=== PATIENT | female | born 1945 | race Caucasian/White ===

== ENCOUNTER 2017-02-07 06:00 | Inpatient (IN) | payer MEDICARE, OTHER ==
[~2017-02-07] VITALS: Ht 152.4 cm; Wt 68.0 kg
[~2017-02-07 06:00] MED LIST: ACET-868 PO; ALBU2.5V13 IH; ALLA266C2 TP; ASPI81TA2 PO; ATOR40TA PO; BLOO-697 IN; DEXL60CA3 PO; DEXT50DI8 IV; FLUT1DIS3 IH; IBUP-1955 PO; INSU100I19 SQ; INSU100V3 SQ; LEVO750T46 PO; MAG30ORA PO; MAGN400O6 PO; METF500T4 PO; OXYC-128 PO
--- NOTE | 2017-02-07 06:04 | NUR ---
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 PER EMS PLACED IV ON LEFT HAND 20G. AND GAVE PT ASA 325 PO AND 1 SPRAY NITRO WITHOUT RELIEF. PT AOX4 RR EVEN AND UNLABORED. NO SOB NOTED. NAD NOTED. NO NVD AT THIS TIME. PT GOWNED AND PLACED ON MONITOR WAITING FOR MD PETERSEN.
--- NOTE | 2017-02-07 06:06 | NUR ---
DR. ROGERS AT BEDSIDE FOR EVAL.
[2017-02-07] MEDS ORDERED: IV NS 0.9% 1,000 ML ONE (06:12)
[2017-02-07] MEDS ORDERED: ONDANSETRON HCL/PF 4 MG/2 ML VIAL ONE (06:12)
[2017-02-07] MEDS ORDERED: MORPHINE SULFATE INJ 4 MG/ML DISP.SYRIN ONE ×3 (06:12→09:33)
[2017-02-07] MEDS ORDERED: IV SET PRIMARY 1 EA INFUS.SET MC ONE (06:12)
--- NOTE | 2017-02-07 06:20 | NUR ---
IV STARTED ON LEFT AC 18G, LABS DRAWN CALLED LAB FOR CONSTRUCTION SPECIALIST.
[2017-02-07] MEDS ORDERED: MORPHINE SULFATE INJ 2 MG/ML DISP.SYRIN IV ONE ×3 (06:30→10:00)
[2017-02-07] MEDS ORDERED: IV NS 0.9% 1,000 ML BAG IV ONE (06:30)
[2017-02-07] MEDS ORDERED: ONDANSETRON HCL/PF 4 MG/2 ML VIAL IVP ONE (06:30)
[2017-02-07 06:32] LABS: BASOPHILS % (AUTO) 0.3 % (0.0-2.0); EOSINOPHILS # (AUTO) 0.1 /CMM (0.0-0.7); EOSINOPHILS % (AUTO) 2.4 % (0.0-6.0); HEMATOCRIT 32 % (33-45); HEMOGLOBIN 10.5 g/dL (11.5-14.8); LYMPHOCYTES # (AUTO) 3.1 /CMM (0.8-4.8); LYMPHOCYTES % (AUTO) 50.3 % (20.0-44.0); MEAN CORPUSCULAR HEMOGLOBIN 27 PG (26.0-33.0); MEAN CORPUSCULAR HGB CONC 33 g/dl (31.0-36.0); MEAN CORPUSCULAR VOLUME 82 fL (82-100); MONOCYTES # (AUTO) 0.4 /CMM (0.1-1.30); MONOCYTES % (AUTO) 6.4 % (2.0-12.0); NEUTROPHILS # (AUTO) 2.5 /CMM (1.8-8.9); NEUTROPHILS % (AUTO) 40.6 % (43.0-81.0); PLATELET COUNT (AUTO) 145 /CMM (150-450); RDW COEFFICIENT OF VARIATION 15.8 (11.5-15.0); WHITE BLOOD COUNT (AUTO) 6.2 K/uL (4.3-11.0)
[2017-02-07 06:41] LABS: CALCIUM, SERUM 8.5 mg/dL (8.5-10.1); CARBON DIOXIDE 25 mmol/L (21-32); CHLORIDE 109 mmol/L (98-107); CREATININE 0.9 mg/dL (0.6-1.3); GLUCOSE 118 mg/dL (74-106); POTASSIUM 3.4 mmol/L (3.5-5.1); SODIUM SERUM 143 mmol/L (136-145); UREA NITROGEN, BLOOD 21 mg/dL (7-18)
[2017-02-07 06:43] LABS: INR 0.99 (0.87-1.13); PROTHROMBIN TIME 10.6 SECS (9.5-12.7)
[2017-02-07 06:46] LABS: ALANINE AMINOTRANSFERASE 11 U/L (12-78); ALBUMIN 3.1 g/dL (3.4-5.0); ALKALINE PHOSPHATASE 70 U/L (46-116); ASPARTATE AMINOTRANSFERASE 8 U/L (15-37); BILIRUBIN,TOTAL 0.2 mg/dL (0.2-1.0); TOTAL PROTEIN, SERUM 6.4 g/dL (6.4-8.2)
[2017-02-07 06:49] LABS: TROPONIN I < 0.017 ng/mL (0.00-0.056)
--- NOTE | 2017-02-07 07:10 | NUR ---
PT STATES SHE IS ALLERGIC TO CONTRAST. INFORMED DR. ROGERS
--- NOTE | 2017-02-07 07:17 | NUR ---
MANAGER CODE AT BEDSIDE
--- NOTE | 2017-02-07 07:19 | NUR ---
XRAY AT BEDSIDE
--- NOTE | 2017-02-07 07:23 | NUR ---
REPORT GIVEN TO ISIS TREVIÑO FOR CONTINUE OF CARE.
--- NOTE | 2017-02-07 07:38 | NUR ---
ASSISTED PATIENT TO THE RESTROOM VIA WHEELCHAIR.
--- NOTE | 2017-02-07 07:45 | NUR ---
VENOUS DUPLEX US AT .
--- NOTE | 2017-02-07 09:01 | NUR ---
pt to vq scan
--- NOTE | 2017-02-07 10:39 | NUR ---
BILLY. LUNG V/Q WAS COMPLETED. TECH:RB.
[2017-02-07] MEDS ORDERED: CARI350T PO (11:14)
[2017-02-07] MEDS ORDERED: ALPR0.5T PO (11:14)
[2017-02-07] MEDS ORDERED: HYDR-548 PO (11:14)
--- NOTE | 2017-02-07 11:17 | NUR ---
PAGED CRUSHER AND BLENDER OPERATOR FOR [facility] DR KLEIN
--- NOTE | 2017-02-07 11:20 | NUR ---
CALLED NURSING OFFICE TECHNICIAN FOR TELE BED
--- NOTE | 2017-02-07 11:52 | NUR ---
TELE 309-2 [facility]
--- NOTE | 2017-02-07 11:59 | NUR ---
DR GRUBER ON THE PHONE WITH DR ROGERS
--- NOTE | 2017-02-07 12:05 | NUR ---
FOOD TRAY PROVIDED AT
[2017-02-07 13:00] VITALS: BP 122/77
--- NOTE | 2017-02-07 13:07 | NUR ---
REPORT GIVEN TO ISIS WALLACE FOR SINGH TELE 309
--- NOTE | 2017-02-07 13:15 | NUR ---
RN NEW ADMISSION ON TELEMETRY FROM ER PT. WAS IN THE ROOM AWAKE, SITTING UP IN BED ON HER BACK IN STABLE CONDITION AWAKE, A&OX4. NO SOB, NO S/S OF DISTRESS. VITAL SIGNS ARE WITHIN NORMAL LIMITS. PT. WAS PLACED ON AN EXTERNAL TAG PRESS OPERATOR, AND LEADS APPLIED. PT. WAS NORMAL SINUS RHYTHM 64 BPM. PT. WAS C/O SACRAL PAIN, AND INTERMITTENT RIGHT SIDED CHEST PAIN LEVEL 9/10. CHECKED NEW MD ORDERS FOR PAIN MEDICATION, NORCO, AND SOMA WAS ORDERED. WA PT. HAS A WALKER NEAR BED SIDE AND IS ABLE TO AMBULATE WITH WALKER TO THE BATHROOM. PT. HAS A PATENT LEFT ANTECUBITAL SITE FLUSHED WITH NORMAL SALINE WITHOUT RESISTANCE. ASSESSED SKIN, NO WOUNDS, AND SKIN IS INTACT. PT. HAD MINIMAL SWELLING ON THE TOP OF BOTH FEET. BLOOD SUGAR WAS 89, AND PROVIDED PT. WITH JUICE AND CRACKERS PER PT. REQUEST. PT. WAS ABLE TO ANSWER QUESTIONS ON ASSESSMENT ABOUT HER HEALTH HISTORY.
[2017-02-07 16:00] VITALS: BP 131/71
[2017-02-07] MEDS ORDERED: POTASSIUM CHLORIDE 20 MEQ TAB.PRT.SR PO ONE (16:00)
[2017-02-07 16:16] LABS: IRON, SERUM 45 ug/dl (50-175); TOTAL IRON BINDING CAPACITY 410 ug/dl (250-450)
[2017-02-07] MEDS ORDERED: DOCUSATE SODIUM 100 MG CAPSULE PO PRN (16:30)
[2017-02-07] MEDS ORDERED: LORAZEPAM 1 MG TABLET PO PRN (16:30)
[2017-02-07] MEDS ORDERED: ACETAMINOPHEN 325 MG TABLET PO PRN (16:30)
[2017-02-07] MEDS ORDERED: ZOLPIDEM TARTRATE 5 MG TABLET PO PRN (16:30)
[2017-02-07] MEDS ORDERED: NITROGLYCERIN 0.4 MG/TAB BOTTLE SL PRN (16:30)
[2017-02-07] MEDS ORDERED: MORPHINE SULFATE INJ 2 MG/ML DISP.SYRIN IV PRN ×2 (16:30)
[2017-02-07] MEDS: HYDROCODONE/APAP 10/325MG 1 EA TABLET PO PRN (17:40)
[2017-02-07] MEDS: CARISOPRODOL 350 MG TABLET PO SCH (17:41)
--- NOTE | 2017-02-07 19:35 | NUR ---
RN CLOSING NOTE PT. IS AWAKE IN BED, A&OX4. PT. IS ON HUMAN RESOURCES SUPERVISOR WITH HEART RHYTHM IN SINUS BRADYCARDIA AT 49 BPM. NO SOB, BREATHING ON ROOM AIR UNLABORED AND EVENLY. NO S/S OF DISTRESS. PT. WAS GIVEN PAIN MEDICATION AND PAIN REASSESSED. PT HAS A PATENT LEFT ANTECUBITAL IV SITE THAT PT. REQUESTED TO HAVE TAKEN OUT. PT. REQUESTED TO TAKE XANAX AT 2100 BEFORE GOING TO SLEEP. BELONGINGS LIST WAS DONE ON ADMISSION. 2 SIDE RAILS UP, HEAD OF BED IS ELEVATED, CALL LIGHT WITHIN REACH, AND ALL NEEDS ATTENDED TO. WILL ENDORSE REPORT TO [employer] MANAGER NURSE.
--- NOTE | 2017-02-07 19:40 | NUR ---
RN OPENING NOTES RECEIVED REPORT FROM ADÁN RNMADISON. FOUND Pt AWAKE IN BED, A/OX4, VERBAL, ABLE TO MAKE NEEDS KNOWN. NO S/S OF ACUTE DISTRESS OR SOB NOTED. EQUAL CHEST RISE AND FALL. TELE SB 50's BASELINE. AMB WITH WALKER. IV ACCESS ON LAC #18G, SL. SAFETY MEASURES IN PLACE. BED LOW, LOCKED, HOB ELEVATED, & SIDE RAILS UP. WILL CONTINUE TO MONITOR Pt THROUGHOUT THE NIGHT FOR SAFETY.
[2017-02-07] MEDS: ALPRAZOLAM 0.5 MG TABLET PO SCH (19:47)
[2017-02-07 20:00] VITALS: BP 114/75
[2017-02-07] MEDS: CARVEDILOL 6.25 MG TABLET PO SCH (21:58)
[2017-02-07 22:00] VITALS: BP 114/75
[2017-02-07] MEDS ORDERED: SIMVASTATIN 20 MG TABLET PO SCH (22:00)
[2017-02-08] VITALS: BP 124/77
[2017-02-08 04:00] VITALS: BP 128/73
--- NOTE | 2017-02-08 06:40 | NUR ---
RN CLOSING NOTES NO SIGNIFICANT CHANGES DURING THE SHIFT. ALL NEEDS MET AND ATTENDED TO. SAFETY MEASURES IN PLACE. WILL ENDORSE TO DAYSHIFT RN FOR Pt's SINGH.
[2017-02-08 06:59] LABS: BASOPHILS % (AUTO) 0.4 % (0.0-2.0); EOSINOPHILS # (AUTO) 0.1 /CMM (0.0-0.7); EOSINOPHILS % (AUTO) 1.7 % (0.0-6.0); HEMATOCRIT 30 % (33-45); HEMOGLOBIN 10.1 g/dL (11.5-14.8); LYMPHOCYTES # (AUTO) 2.4 /CMM (0.8-4.8); LYMPHOCYTES % (AUTO) 47.1 % (20.0-44.0); MEAN CORPUSCULAR HEMOGLOBIN 27 PG (26.0-33.0); MEAN CORPUSCULAR HGB CONC 33 g/dl (31.0-36.0); MEAN CORPUSCULAR VOLUME 82 fL (82-100); MONOCYTES # (AUTO) 0.3 /CMM (0.1-1.30); MONOCYTES % (AUTO) 6.1 % (2.0-12.0); NEUTROPHILS # (AUTO) 2.3 /CMM (1.8-8.9); NEUTROPHILS % (AUTO) 44.7 % (43.0-81.0); PLATELET COUNT (AUTO) 136 /CMM (150-450); RDW COEFFICIENT OF VARIATION 15.9 (11.5-15.0); WHITE BLOOD COUNT (AUTO) 5.1 K/uL (4.3-11.0)
--- NOTE | 2017-02-08 07:00 | NUR ---
MULTIMEDIA DEVELOPER INITIAL NOTE REPORT RECEIVED AT THE BEDSIDE. PATIENT IS SLEEPING. NO SOB OR DISTRESS NOTED A THIS TIME. PATIENT DOES NOT APPEAR TO BE IN PAIN, NO FACIAL GRIMACE NOTED. HEART RATE IS SR AT 68. BED IN A LOW POSITION, CALL LIGHT WITHIN PATIENT REACH. WILL CONTINUE TO MONITOR.
[2017-02-08 07:13] LABS: INR 1.02 (0.87-1.13); PROTHROMBIN TIME 10.9 SECS (9.5-12.7)
[2017-02-08 07:15] LABS: CALCIUM, SERUM 8.5 mg/dL (8.5-10.1); CREATININE 0.8 mg/dL (0.6-1.3); MAGNESIUM 1.6 mg/dL (1.8-2.4); PHOSPHORUS 4.4 mg/dL (2.5-4.9)
[2017-02-08 08:00] VITALS: BP 101/57
[2017-02-08] MEDS: CARISOPRODOL 350 MG TABLET PO SCH (08:22)
[2017-02-08] MEDS: ALPRAZOLAM 0.5 MG TABLET PO SCH (08:23)
[2017-02-08] MEDS: HYDROCODONE/APAP 10/325MG 1 EA TABLET PO PRN (08:28)
[2017-02-08] MEDS: CARVEDILOL 6.25 MG TABLET PO SCH (08:36)
[2017-02-08 09:00] VITALS: BP 101/57
[2017-02-08] MEDS ORDERED: Magnesium 1GM/D5W 100ML PREMIX PIGGYBACK IV ONE (09:00)
[2017-02-08] MEDS ORDERED: ASPIRIN 81 MG TAB.CHEW PO SCH (09:00)
[2017-02-08] MEDS ORDERED: ALBUTEROL FS 2.5 MG/3 ML VIAL.NEB ONE (09:16)
[2017-02-08] MEDS ORDERED: IV SET PRIMARY PUMP SET 1 EA INFUS.SET MC ONE ×2 (09:27→09:34)
[2017-02-08] MEDS ORDERED: ALBUTEROL FS 2.5 MG/0.5 ML VIAL.NEB NEB ONE (09:30)
[2017-02-08] MEDS ORDERED: Magnesium 1GM/D5W 100ML PREMIX 100 ML IV SCH (09:30)
[2017-02-08] MEDS ORDERED: HYDROCODONE/APAP 5/325MG 1 EACH TABLET PO ONE (09:30)
[2017-02-08] MEDS ORDERED: FERROUS SULFATE (325 MG) 325 MG/TAB TABLET PO SCH (09:30)
[2017-02-08] MEDS ORDERED: ALBUTEROL FS 2.5 MG/0.5 ML VIAL.NEB NEB PRN (10:00)
[2017-02-08 16:06] VITALS: BP 106/61
[2017-02-08 16:12] LABS: BASOPHILS % (AUTO) 0.2 % (0.0-2.0); EOSINOPHILS # (AUTO) 0.1 /CMM (0.0-0.7); EOSINOPHILS % (AUTO) 2.7 % (0.0-6.0); HEMATOCRIT 32 % (33-45); HEMOGLOBIN 10.3 g/dL (11.5-14.8); LYMPHOCYTES # (AUTO) 2.8 /CMM (0.8-4.8); LYMPHOCYTES % (AUTO) 52.7 % (20.0-44.0); MEAN CORPUSCULAR HEMOGLOBIN 27 PG (26.0-33.0); MEAN CORPUSCULAR HGB CONC 33 g/dl (31.0-36.0); MEAN CORPUSCULAR VOLUME 82 fL (82-100); MONOCYTES # (AUTO) 0.3 /CMM (0.1-1.30); MONOCYTES % (AUTO) 5.5 % (2.0-12.0); NEUTROPHILS % (AUTO) 38.9 % (43.0-81.0); PLATELET COUNT (AUTO) 142 /CMM (150-450); RDW COEFFICIENT OF VARIATION 15.8 (11.5-15.0); RED BLOOD CELL COUNT(AUTO) 3.84 MIL/uL (4.0-5.2); WHITE BLOOD COUNT (AUTO) 5.2 K/uL (4.3-11.0)
[2017-02-08 16:14] LABS: APPEARANCE,URINE SL CLOUDY (CLEAR); BILIRUBIN,URINE NEGATIVE (NEGATIVE); BLOOD, URINE NEGATIVE Ery/uL (NEGATIVE); COLOR,URINE YELLOW (YELLOW); KETONES,URINE NEGATIVE (NEGATIVE); LEUKOCYTE ESTERASE ,URINE NEGATIVE (NEGATIVE); NITRITE, URINE NEGATIVE (NEGATIVE); PROTEIN,URINE NEGATIVE (NEGATIVE); UGLUCOSE NEGATIVE (NEGATIVE); UROBILINOGEN,URINE 0.2 EU/dL (0.2)
[2017-02-08 16:42] LABS: CALCIUM, SERUM 8.1 mg/dL (8.5-10.1); MAGNESIUM 1.7 mg/dL (1.8-2.4); PHOSPHORUS 4.9 mg/dL (2.5-4.9); POTASSIUM 4.1 mmol/L (3.5-5.1)
--- NOTE | 2017-02-08 16:45 | NUR ---
RN CLOSING NOTE DISCHARGE INSTRUCTIONS GIVEN TO THE PATIENT AND ABLE TO UNDERSTAND. ALL PAPERWORK SIGNED AND BELONGINGS ACCOUNTED FOR. PRESCRIPTIONS GIVEN TO THE PATIENT. IV DISCONNECTED AND PRESSURE APPLIED. NO BLEEDING NOTED AT THE SITE. PICTURES ARE NOT NEEDED PATIENT SKIN IS INTACT. VITALS CHECKED AND RECORDED. PATIENT LEFT IN STABLE CONDITION, VIA WHEEL CHAIR. PATIENT IS DISCHARGED HOME, WITH .
== END 2017-02-08 16:40 | disposition home or self-care (01) | DRG 206 ==
LOC: ER 06:02 → TELE 12:20 → MED 02-08 09:55
PROVIDERS: ADMIT Internal Medicine; ATTEND Internal Medicine
DX: M94.0 Chondrocostal junction syndrome [Tietze] (principal); E44.0 Moderate protein-calorie malnutrition; E66.01 Morbid (severe) obesity due to excess calories; Z68.29 Body mass index [BMI] 29.0-29.9, adult; E78.5 Hyperlipidemia, unspecified; E83.42 Hypomagnesemia; J45.909 Unspecified asthma, uncomplicated; E88.09 Other disorders of plasma-protein metabolism, not elsewhere classified; F41.9 Anxiety disorder, unspecified; G89.29 Other chronic pain; E11.9 Type 2 diabetes mellitus without complications; D50.9 Iron deficiency anemia, unspecified; Z83.3 Family history of diabetes mellitus; Z71.3 Dietary counseling and surveillance
CPT/HCPCS: 36415; 71010-TC; 78582; 80048-TC; 80061-TC; 80076-TC; 80305; 81000-TC; 82150-TC; 82962-TC; 83540-TC; 83690-TC; 83735-TC; 84100-TC; 84484-TC; 85025-TC; 85610-TC; 85730-TC; 87081-TC; 93307-TC; 93970-TC; A4606; A9540; A9567; J2270; J2405; J3475; J7030; Z7610

== ENCOUNTER 2022-08-04 22:10 | Emergency (ER) | payer MEDICARE, OTHER ==
[~2022-08-04] VITALS: Ht 157.5 cm; Wt 71.2 kg
[~2022-08-04 22:10] MED LIST changes: -ACET-868 PO; -ALBU2.5V13 IH; -ALLA266C2 TP; +ALPR0.5T PO; -ASPI81TA2 PO; -ATOR40TA PO; -BLOO-697 IN; +CARI350T PO; -DEXL60CA3 PO; -DEXT50DI8 IV; -FLUT1DIS3 IH; +HYDR-4354 PO; -IBUP-1955 PO; -INSU100I19 SQ; -INSU100V3 SQ; -LEVO750T46 PO; -MAG30ORA PO; -MAGN400O6 PO; -METF500T4 PO; -OXYC-128 PO
[2022-08-04 22:23] VITALS: BP 165/78
[2022-08-04] MEDS ORDERED: predniSONE 20 MG TABLET ONE (22:49)
--- NOTE | 2022-08-04 22:56 | NUR ---
FOREIGN BANKNOTE TELLER TRADER AT PT'S BEDSIDE
--- NOTE | 2022-08-04 22:56 | NUR ---
in waiting room
[2022-08-04] MEDS ORDERED: ALBUTEROL FS 2.5 MG/3 ML VIAL.NEB NEB ONE (23:00)
[2022-08-04] MEDS ORDERED: IPRATROPIUM NEB FS 0.5 MG/2.5 ML AMPUL.NEB NEB ONE (23:00)
[2022-08-04] MEDS ORDERED: predniSONE 20 MG TABLET PO ONE (23:00)
--- NOTE | 2022-08-04 23:00 | NUR ---
CALLED RT FOR BREATHING TX
[2022-08-04] MEDS ORDERED: IPRATROPIUM NEB FS 0.5 MG/2.5 ML AMPUL.NEB ONE (23:01)
[2022-08-04] MEDS ORDERED: ALBUTEROL FS 2.5 MG/3 ML VIAL.NEB ONE (23:01)
--- NOTE | 2022-08-04 23:07 | NUR ---
RT AT PT'S BEDSIDE
[2022-08-04] MEDS ORDERED: ALBU18HF2 INH (23:34)
[2022-08-04] MEDS ORDERED: PRED50TA PO (23:34)
--- NOTE | 2022-08-04 23:47 | NUR ---
Patient discharged to home in stable condition. RX Written and verbal after care instructions given. Patient verbalizes understanding of instruction. pt ambulatory with a steady gait
== END 2022-08-04 23:46 | disposition home or self-care (01) ==
LOC: ER 22:13
DX: J45.901 Unspecified asthma with (acute) exacerbation (principal); I50.9 Heart failure, unspecified; J45.909 Unspecified asthma, uncomplicated; E11.9 Type 2 diabetes mellitus without complications; Z88.0 Allergy status to penicillin; Z79.899 Other long term (current) drug therapy
CPT/HCPCS: 99283; 71045; 94640; J7512

== ENCOUNTER 2022-08-20 13:38 | Inpatient (IN) | payer MEDICARE, OTHER ==
[~2022-08-20] VITALS: Ht 152.4 cm; Wt 83.9 kg
[~2022-08-20 13:38] MED LIST changes: +ALBU18HF2 INH; +PRED50TA PO
[2022-08-20 15:04] LABS: BASOPHILS % (AUTO) 0.5 % (0.0-2.0); EOSINOPHILS % (AUTO) 0.3 % (0.0-6.0); HEMATOCRIT 29 % (33-45); HEMOGLOBIN 9.1 g/dL (11.5-14.8); LYMPHOCYTES # (AUTO) 0.8 K/uL (0.8-4.8); LYMPHOCYTES % (AUTO) 17.1 % (20.0-44.0); MEAN CORPUSCULAR HGB CONC 31 g/dl (31.0-36.0); MEAN CORPUSCULAR VOLUME 83 fL (82-100); MONOCYTES # (AUTO) 0.3 K/uL (0.1-1.30); MONOCYTES % (AUTO) 5.4 % (2.0-12.0); NEUTROPHILS # (AUTO) 3.8 K/uL (1.8-8.9); NEUTROPHILS % (AUTO) 76.7 % (43.0-81.0); PLATELET COUNT (AUTO) 152 K/uL (150-450); RED BLOOD CELL COUNT(AUTO) 3.53 MIL/uL (4.0-5.2); WHITE BLOOD COUNT (AUTO) 4.9 K/uL (4.3-11.0)
[2022-08-20 15:12] LABS: CALCIUM, SERUM 7.4 mg/dL (8.5-10.1); CARBON DIOXIDE 30 mmol/L (21-32); CHLORIDE 102 mmol/L (98-107); GLUCOSE 180 mg/dL (74-106); SODIUM SERUM 138 mmol/L (136-145); UREA NITROGEN, BLOOD 10 mg/dL (7-18)
[2022-08-20 15:16] LABS: POTASSIUM 2.5 mmol/L (3.5-5.1)
--- NOTE | 2022-08-20 15:29 | NUR ---
FLU AND COVID SWABS DONE AND SENT TO LAB
[2022-08-20] MEDS ORDERED: POTASSIUM CHLORIDE 20 MEQ TAB.PRT.SR PO ONE ×2 (15:30→16:10)
--- NOTE | 2022-08-20 15:50 | NUR ---
established iv line left ac 20 g
[2022-08-20] MEDS ORDERED: POTASSIUM CL. PREMIX PERIPHER. 50 ML ONE ×4 (16:10→20:15)
[2022-08-20] MEDS: POTASSIUM CL. PREMIX PERIPHER. 50 ML IV SCH ×4 (16:30→20:23)
--- NOTE | 2022-08-20 16:41 | NUR ---
on 2-3L o2 via nasal canula , o2sat at 97%
--- NOTE | 2022-08-20 16:49 | NUR ---
COVID POSITIVE PER LAB, AWARE
[2022-08-20] MEDS ORDERED: Magnesium 1 GM/2 ML VIAL IV ONE (17:30)
[2022-08-20] MEDS ORDERED: ASPI-1420 PO (17:56)
[2022-08-20] MEDS ORDERED: BENA20TA9 PO (17:56)
[2022-08-20] MEDS ORDERED: APIX5TAB PO (17:56)
[2022-08-20] MEDS ORDERED: HYDROCODONE/APAP 10/325MG TABLET PO PRN (18:30)
[2022-08-20] MEDS ORDERED: ALBUTEROL SULFATE 8 GM HFA.AER.AD IH PRN (18:30)
[2022-08-20] MEDS ORDERED: MAG HYDROX/AL HYDROX/SIMETH 30 ML UDC PO PRN (18:30)
[2022-08-20] MEDS ORDERED: Z GUARD REMEDY 4 OZ OINT TP PRN (18:30)
[2022-08-20] MEDS ORDERED: ONDANSETRON HCL/PF 4 MG/2 ML VIAL IVP PRN (18:30)
[2022-08-20] MEDS ORDERED: DEXAMETHASONE SOD PHOSPHATE 10 MG/ML VIAL IV SCH (18:30)
[2022-08-20] MEDS ORDERED: MAGNESIUM HYDROXIDE 30 ML UDC PO PRN (18:30)
[2022-08-20] MEDS ORDERED: ACETAMINOPHEN 325 MG TABLET PO PRN (18:30)
[2022-08-20] MEDS ORDERED: DEXTROSE 50%-WATER 50 ML DISP.SYRIN IV PRN (18:30)
[2022-08-20] MEDS ORDERED: Magnesium 1GM/D5W 100ML PREMIX 200 ML IV ONE (18:47)
--- NOTE | 2022-08-20 19:26 | NUR ---
GOT BED 103
[2022-08-20] MEDS ORDERED: DEXAMETHASONE SOD PHOSPHATE 10 MG/ML VIAL ONE (20:15)
--- NOTE | 2022-08-20 20:17 | NUR ---
REPORT GIVEN TO DIANA BERNARD RN FOR SINGH
--- NOTE | 2022-08-20 20:43 | NUR ---
PT TRANSFERRED TO [facility] 103 VIA ACLS PROTOCOL WITH O2 N/C 3LPM. ENDORSED POTASSIUM 10MEQ TO DIANA MARINELLI TO COMPLETE IV INFUSION. ALL BELONGINGS WITH PT.
[2022-08-20] MEDS ORDERED: Magnesium 1GM/D5W 100ML PREMIX 100 ML IV SCH (21:00)
--- NOTE | 2022-08-20 22:00 | NUR ---
CUT OFF MACHINE HELPERCIDER MAKER NOTE PATIENT ARRIVED ON UNIT, PT STATED SHE DOESN'T WANT TO STAY HERE AND WANTS TO LEAVE, STATES WE ARE GOING TO KILL HER HERE, PATIENT CALLED 911. ASKED PATIENT TO CALL , SPOKE TO ABOUT PATIENT'S CONDITION AND MD RECOMMENDATIONS, CONVINCED TO STAY. PATIENT STABLE ON 3 LPM OF O2 VIA NASAL CANNULA, NO S/S OF DISTRESS OR SOB NOTED, BREATHING EVEN AND UNLABORED. PATIENT ALERT/ORIENTED X 3, ABLE TO MAKE NEEDS KNOWN. PT ON TELE MONITOR READING SINUS RHYTHM, HR: 75. PT REFUSED SKIN CHECK, DIDN'T WANT US TO TOUCH HER OR DO ANYTHING, BUT DIDN'T OBSERVE ANY WOUNDS WHEN PROVIDING HYGIENE CARE, PT INCONTINENT, USES DIAPERS AT HOME D/T FREQUENT URINATION AND INCONTINENCE. PER PATIENT HAS DIFFICULTY WALKING D/T A FALL 6 YEARS AGO, STATES SHE USES WHEELCHAIR AND CANE AT HOME. PATIENT STATES SHE RECEIVED FIRST COVID VACCINE BUT HAD ALLERGIC REACTION AND DIDN'T RECEIVE SECOND DOSE, PT UNABLE TO STATE IF SHE'S GOTTEN FLU VACCINE, PT STATED "I'VE GOTTEN ALL THE SHOTS". PATIENT HAS MONEY WITH HER BUT REFUSED TO PUT IN SAFE, WANTS TO KEEP IN HER PURSE. SAFETY MEASURES IN PLACE: CALL LIGHT WITHIN REACH, SIDE RAILS UP X 3, BED LOCKED IN LOWEST POSITION, BED ALARM ON. WILL CONTINUE TO MONITOR PATIENT
[2022-08-20] MEDS: BLOOD SUGAR DIAGNOSTIC 1 EACH STRIP IN SCH (23:02)
[2022-08-20] MEDS: INSULIN REGULAR, HUMAN 100 UNIT/ML 3 ML VIAL SQ PRN (23:03)
[2022-08-21] VITALS: BP 104/70
[2022-08-21 04:30] VITALS: BP 113/47
[2022-08-21 04:42] LABS: ABG BASE EXCESS 4.4 mmol/L; ABG PCO2 48.3 mmHg (35.0-45.0); ABG PH 7.412 (7.350-7.450); ABG PO2 71.3 mmHg (75.0-100.0); AaDO2 71.3 mmHg; COHb 0.8 % (0.5-1.5); MetHb 0.3 % (0.0-1.5); O2Hb 92.5 % (94.0-97.0); SITE, ABG Left Radial; VENT MODE, BG Nasal Cannula
[2022-08-21 07:01] LABS: BASOPHILS % (AUTO) 0.1 % (0.0-2.0); HEMATOCRIT 29 % (33-45); LYMPHOCYTES # (AUTO) 1.1 K/uL (0.8-4.8); LYMPHOCYTES % (AUTO) 33.2 % (20.0-44.0); MEAN CORPUSCULAR HGB CONC 31 g/dl (31.0-36.0); MEAN CORPUSCULAR VOLUME 83 fL (82-100); MONOCYTES # (AUTO) 0.2 K/uL (0.1-1.30); MONOCYTES % (AUTO) 5.1 % (2.0-12.0); NEUTROPHILS # (AUTO) 2.1 K/uL (1.8-8.9); NEUTROPHILS % (AUTO) 61.6 % (43.0-81.0); PLATELET COUNT (AUTO) 151 K/uL (150-450); RED BLOOD CELL COUNT(AUTO) 3.44 MIL/uL (4.0-5.2); WHITE BLOOD COUNT (AUTO) 3.4 K/uL (4.3-11.0)
[2022-08-21] MEDS ORDERED: PANTOPRAZOLE 40 MG TABLET.DR PO SCH (07:30)
[2022-08-21 07:42] LABS: CALCIUM, SERUM 7.9 mg/dL (8.5-10.1); CREATININE 0.7 mg/dL (0.6-1.3); PHOSPHORUS 2.5 mg/dL (2.5-4.9); POTASSIUM 3.8 mmol/L (3.5-5.1)
[2022-08-21] MEDS: BLOOD SUGAR DIAGNOSTIC 1 EACH STRIP IN SCH ×2 (07:44→11:44)
[2022-08-21 07:52] LABS: THYROID STIMULATING HORMONE 0.082 uIU/mL (0.358-3.74)
[2022-08-21 08:00] VITALS: BP 130/56
[2022-08-21] MEDS: INSULIN REGULAR, HUMAN 100 UNIT/ML 3 ML VIAL SQ PRN ×2 (08:18→11:50)
[2022-08-21] MEDS ORDERED: APIXABAN 5 MG TABLET PO SCH (09:00)
[2022-08-21] MEDS ORDERED: ALPRAZOLAM 0.5 MG TABLET PO SCH (09:00)
[2022-08-21] MEDS ORDERED: BENAZEPRIL HCL 10 MG TABLET PO SCH (09:00)
[2022-08-21] MEDS ORDERED: ASPIRIN EC 81 MG TABLET.DR PO SCH (09:00)
[2022-08-21 12:00] VITALS: BP 105/57
[2022-08-21 16:00] VITALS: BP 106/63
--- NOTE | 2022-08-21 16:25 | NUR ---
RN NOTE PATIENT IS REFUSING TO STAY IN BED, CHARGE NURSE IS AWARE, CALLED SECURITY AT THIS TIME. PATIENT IS TRYING TO LEAVE THE UNIT AFTER EXPLAINING RISKS AND BENEFITS.
--- NOTE | 2022-08-21 16:47 | NUR ---
SEED SALES MANAGER OTES PER CASE MANAGEMENT - JOVANNI SANCHEZ RN, PATIENT'S IS GOING TO TAKE THE PATIENT HOME AGAINST MEDICAL ADVISE PAPER SIGNED. DR. RICH SALAZAR AWARE
--- NOTE | 2022-08-21 16:48 | NUR ---
RN NOTE PATIENT SIGNED AMA, NOTIFIED DR ANCELMO SALAZAR. IS PICKING UP PATIENT
--- NOTE | 2022-08-21 17:29 | NUR ---
RN NOTE PATIENT LEFT ON WHEELCHAIR WITH N95 MASK. ESCORTED BY AND ARMANDO ANTOINE. PATIENT AND UNDERSTAND TO ISOLATE AT HOME. IV ACCESS REMOVED, CATHETER TIP INTACT NO S/S OF BLEEDING. TELE MONITOR REMOVED. DISCHARGE PACKET GIVEN TO .
== END 2022-08-21 17:25 | disposition left against medical advice (07) | DRG 640 ==
LOC: ER 13:41 → TELE1 20:02
PROVIDERS: ADMIT Nurse Practitioner Acute Care; ATTEND Nurse Practitioner Acute Care
DX: E87.6 Hypokalemia (principal); U07.1 COVID-19; E83.42 Hypomagnesemia; D63.8 Anemia in other chronic diseases classified elsewhere; E11.9 Type 2 diabetes mellitus without complications; F32.A Depression, unspecified; J45.909 Unspecified asthma, uncomplicated; R09.81 Nasal congestion; R05.9 Cough, unspecified; R09.02 Hypoxemia; Z79.01 Long term (current) use of anticoagulants; Z79.82 Long term (current) use of aspirin; Z83.3 Family history of diabetes mellitus; Z88.0 Allergy status to penicillin; Z88.7 Allergy status to serum and vaccine; Z79.899 Other long term (current) drug therapy; Z96.641 Presence of right artificial hip joint
CPT/HCPCS: 36415; 36600; 71045-TC; 80048-TC; 80061-TC; 82728-TC; 82803-TC; 82962-TC; 83540-TC; 83615-TC; 83735-TC; 83880; 84100-TC; 84443-TC; 84484-TC; 85025-TC; 85378-TC; 86140-TC; 87081-TC; 94799-TC; 97112-TC; 97116-TC; 97530-TC; C9803; G0378; J1100; J1815; J3475; J3480

== ENCOUNTER 2022-09-20 18:58 | Emergency (ER) | payer MEDICARE, OTHER ==
[~2022-09-20] VITALS: Ht 154.9 cm; Wt 59.0 kg
[~2022-09-20 18:58] MED LIST changes: +APIX5TAB PO; +ASPI-1420 PO; +BENA20TA9 PO; -CARI350T PO; -PRED50TA PO
--- NOTE | 2022-09-20 19:10 | NUR ---
GISEL RA76 "From Home peeing/frequency of urination [id number]". PLACED IN BED, AAOX4, BREATHING EVEN AND UNLABORED.
--- NOTE | 2022-09-20 19:20 | NUR ---
OFFSET LITHOGRAPHIC PRESS OPERATOR AT BEDSIDE
[2022-09-20 19:54] LABS: CALCIUM, SERUM 8.2 mg/dL (8.5-10.1); POTASSIUM 2.9 mmol/L (3.5-5.1)
[2022-09-20 20:09] LABS: BILIRUBIN,URINE NEGATIVE (NEGATIVE); COLOR,URINE YELLOW (YELLOW); LEUKOCYTE ESTERASE ,URINE NEGATIVE (NEGATIVE); NITRITE, URINE NEGATIVE (NEGATIVE); PROTEIN,URINE NEGATIVE (NEGATIVE); UGLUCOSE NEGATIVE (NEGATIVE); UROBILINOGEN,URINE 0.2 EU/dL (0.2)
[2022-09-20] MEDS ORDERED: POTASSIUM CHLORIDE 20 MEQ TAB.PRT.SR PO ONE ×2 (20:12→20:30)
[2022-09-20 20:15] LABS: BASOPHILS % (AUTO) 0.2 % (0.0-2.0); EOSINOPHILS % (AUTO) 0.8 % (0.0-6.0); HEMATOCRIT 28 % (33-45); HEMOGLOBIN 8.6 g/dL (11.5-14.8); LYMPHOCYTES # (AUTO) 2.9 K/uL (0.8-4.8); LYMPHOCYTES % (AUTO) 29.5 % (20.0-44.0); MEAN CORPUSCULAR HGB CONC 31 g/dl (31.0-36.0); MEAN CORPUSCULAR VOLUME 82 fL (82-100); MONOCYTES # (AUTO) 0.6 K/uL (0.1-1.30); MONOCYTES % (AUTO) 6.2 % (2.0-12.0); NEUTROPHILS # (AUTO) 6.1 K/uL (1.8-8.9); NEUTROPHILS % (AUTO) 63.3 % (43.0-81.0); PLATELET COUNT (AUTO) 257 K/uL (150-450); RED BLOOD CELL COUNT(AUTO) 3.42 MIL/uL (4.0-5.2); WHITE BLOOD COUNT (AUTO) 9.7 K/uL (4.3-11.0)
--- NOTE | 2022-09-20 20:17 | NUR ---
[phone] MERCEDES , CALL HIM FOR INTERNSHIP COORDINATOR
[2022-09-20 22:32] VITALS: BP 121/70
== END 2022-09-20 22:32 | disposition home or self-care (01) ==
LOC: ER 19:06
DX: R35.0 Frequency of micturition (principal); D64.9 Anemia, unspecified; I50.9 Heart failure, unspecified; E11.9 Type 2 diabetes mellitus without complications; J45.909 Unspecified asthma, uncomplicated; Z88.0 Allergy status to penicillin; Z79.899 Other long term (current) drug therapy
CPT/HCPCS: 36415; 80048-TC; 85025-TC

== ENCOUNTER 2022-11-26 02:12 | Emergency (ER) | payer MEDICARE, OTHER ==
[~2022-11-26] VITALS: Ht 157.5 cm; Wt 72.6 kg
--- NOTE | 2022-11-26 02:40 | NUR ---
[id number]. FREQUENT URINATION X 15 DAYS. PATIENT IS AAOX4. ABLE TO MAKE NEEDS KNOWN. PLACED COMFORTABLY IN BED. VITALS CHECKED.
--- NOTE | 2022-11-26 02:46 | NUR ---
URINE COLLECTED AND SENT TO LAB
[2022-11-26 02:49] LABS: BILIRUBIN,URINE NEGATIVE (NEGATIVE); COLOR,URINE YELLOW (YELLOW); LEUKOCYTE ESTERASE ,URINE NEGATIVE (NEGATIVE); NITRITE, URINE NEGATIVE (NEGATIVE); PH,URINE 5.5 (5.0-8.0); PROTEIN,URINE NEGATIVE (NEGATIVE); UGLUCOSE NEGATIVE (NEGATIVE); UROBILINOGEN,URINE 0.2 EU/dL (0.2)
[2022-11-26 02:50] LABS: BACTERIA,URINE Rare /HPF (None Seen); RBC,URINE 0-2 /HPF (0-2); SQUAMOUS EPITHELIAL CELL,UR Many /HPF (None Seen); WBC,URINE 0-2 /HPF (0-3)
--- NOTE | 2022-11-26 03:29 | NUR ---
[facility] CALLED FOR BLS GOING BACK TO [facility] PER CHERYL ETA 45 MIN
--- NOTE | 2022-11-26 04:13 | NUR ---
REPORT GIVEN TO ANIL LEIJA
[2022-11-26 04:27] VITALS: BP 139/64
--- NOTE | 2022-11-26 04:27 | NUR ---
Patient discharged to home in stable condition. Written and verbal after care instructions given. Patient verbalizes understanding of instruction.
== END 2022-11-26 04:28 | disposition home or self-care (01) ==
LOC: ER 02:21
DX: R35.0 Frequency of micturition (principal); I50.9 Heart failure, unspecified; E11.9 Type 2 diabetes mellitus without complications; J45.909 Unspecified asthma, uncomplicated; Z88.0 Allergy status to penicillin; Z79.899 Other long term (current) drug therapy
CPT/HCPCS: 81001

== ENCOUNTER 2023-08-17 07:44 | Emergency (ER) | payer MEDICARE, OTHER ==
[~2023-08-17] VITALS: Ht 167.6 cm; Wt 70.3 kg
[2023-08-17] MEDS ORDERED: HYDROCODONE/APAP 5/325MG TABLET ONE (10:52)
[2023-08-17] MEDS ORDERED: HYDROCODONE/APAP 5/325MG TABLET PO ONE (11:00)
[2023-08-17 15:24] VITALS: BP 141/68; TEMP 98.2; O2SAT 98
== END 2023-08-17 15:24 | disposition home or self-care (01) ==
LOC: ER 07:47
DX: S01.21XA Laceration without foreign body of nose, initial encounter (principal); I50.9 Heart failure, unspecified; E11.9 Type 2 diabetes mellitus without complications; J45.909 Unspecified asthma, uncomplicated; Z88.0 Allergy status to penicillin; W18.30XA Fall on same level, unspecified, initial encounter; Y93.89 Activity, other specified; Y92.89 Other specified places as the place of occurrence of the external cause; Y99.8 Other external cause status
CPT/HCPCS: 99284; 72125; 12011; 70450; 70486; A6403

== ENCOUNTER 2023-08-26 12:08 | Inpatient (IN) | payer MEDICARE, OTHER ==
[~2023-08-26] VITALS: Ht 157.5 cm; Wt 90.7 kg
[2023-08-26 13:50] LABS: BASOPHILS % (AUTO) 0.1 % (0.0-2.0); EOSINOPHILS % (AUTO) 0.7 % (0.0-6.0); HEMATOCRIT 30 % (33-45); HEMOGLOBIN 9.6 g/dL (11.5-14.8); LYMPHOCYTES # (AUTO) 1.9 K/uL (0.8-4.8); LYMPHOCYTES % (AUTO) 34.7 % (20.0-44.0); MEAN CORPUSCULAR HEMOGLOBIN 31 PG (26.0-33.0); MEAN CORPUSCULAR HGB CONC 32 g/dl (31.0-36.0); MEAN CORPUSCULAR VOLUME 97 fL (82-100); MONOCYTES # (AUTO) 0.5 K/uL (0.1-1.30); MONOCYTES % (AUTO) 8.3 % (2.0-12.0); NEUTROPHILS # (AUTO) 3.2 K/uL (1.8-8.9); NEUTROPHILS % (AUTO) 56.2 % (43.0-81.0); PLATELET COUNT (AUTO) 167 K/uL (150-450); RED BLOOD CELL COUNT(AUTO) 3.13 MIL/uL (4.0-5.2); RED CELL DISTRIBUTION WIDTH 20.5 % (11.5-15.0); WHITE BLOOD COUNT (AUTO) 5.6 K/uL (4.3-11.0)
[2023-08-26 14:00] LABS: CALCIUM, SERUM 8.5 mg/dL (8.5-10.1); POTASSIUM 3.4 mmol/L (3.5-5.1)
[2023-08-26 15:07] LABS: APPEARANCE,URINE SLIGHTLY CLOUDY (CLEAR); BILIRUBIN,URINE NEGATIVE (NEGATIVE); BLOOD, URINE NEGATIVE Ery/uL (NEGATIVE); COLOR,URINE YELLOW (YELLOW); KETONES,URINE NEGATIVE (NEGATIVE); LEUKOCYTE ESTERASE ,URINE 1+ (NEGATIVE); NITRITE, URINE NEGATIVE (NEGATIVE); PH,URINE 6.5 (5.0-8.0); PROTEIN,URINE NEGATIVE (NEGATIVE); UGLUCOSE NEGATIVE (NEGATIVE); UROBILINOGEN,URINE 0.2 EU/dL (0.2)
[2023-08-26 15:18] LABS: ADD URINE CULTURE YES; BACTERIA,URINE 1+ /HPF (None Seen); RBC,URINE 0-2 /HPF (0-2); SQUAMOUS EPITHELIAL CELL,UR Moderate /HPF (None Seen); YEAST,URINE Few /HPF (None Seen)
[2023-08-26] MEDS ORDERED: NITR100C PO (15:43)
[2023-08-26] MEDS ORDERED: ZOLPIDEM TARTRATE 5 MG TABLET PO ONE (20:30)
[2023-08-26] MEDS ORDERED: ZOLPIDEM TARTRATE 5 MG TABLET ONE (20:58)
[2023-08-27 03:15] VITALS: BP 123/55; TEMP 97.9; O2SAT 97
[2023-08-27] MEDS ORDERED: MAG HYDROX/AL HYDROX/SIMETH 30 ML UDC PO PRN (03:30)
[2023-08-27] MEDS ORDERED: ACETAMINOPHEN 325 MG TABLET PO PRN (03:30)
[2023-08-27] MEDS ORDERED: BLOOD SUGAR DIAGNOSTIC 1 EACH STRIP IN ONE (03:30)
[2023-08-27] MEDS ORDERED: MAGNESIUM HYDROXIDE 30 ML UDC PO PRN (03:30)
[2023-08-27] MEDS: HYDROCODONE/APAP 5/325MG TABLET PO PRN ×3 (04:30→21:41)
[2023-08-27] MEDS ORDERED: Z GUARD REMEDY 4 OZ OINT TP PRN (06:00)
[2023-08-27 08:00] VITALS: BP 132/87; TEMP 97.8; O2SAT 100
[2023-08-27] MEDS: CIPROFLOXACIN HCL 250 MG TABLET PO SCH ×2 (08:02→21:40)
[2023-08-27] MEDS ORDERED: POTASSIUM CHLORIDE 20 MEQ TAB.PRT.SR PO ONE (09:00)
[2023-08-27] MEDS ORDERED: ALBU18HF2 IH (09:38)
[2023-08-27] MEDS ORDERED: DEXL60CA3 PO (09:56)
[2023-08-27] MEDS ORDERED: SITA50TA PO (09:56)
[2023-08-27] MEDS ORDERED: ERGO500040 PO (09:56)
[2023-08-27] MEDS: risperiDONE 1 MG TABLET PO SCH (11:22)
[2023-08-27] MEDS ORDERED: ALBUTEROL FS 2.5 MG/3 ML VIAL.NEB IH PRN (13:30)
[2023-08-27 16:00] VITALS: BP 132/74; TEMP 97.8; O2SAT 95
[2023-08-27] MEDS: NITROFURANTOIN/MONOHYDRATE MACROCRYSTALS 100 MG CAPSULE PO SCH (16:18)
[2023-08-27] MEDS: APIXABAN 5 MG TABLET PO SCH (16:19)
[2023-08-27] MEDS ORDERED: NITROFURANTOIN MACROCRYSTAL 100 MG CAPSULE PO SCH (17:00)
[2023-08-27 20:05] VITALS: BP 130/69; TEMP 98.2; O2SAT 94
[2023-08-28 08:00] VITALS: BP 131/68; TEMP 97.6; O2SAT 93
[2023-08-28] MEDS: NITROFURANTOIN/MONOHYDRATE MACROCRYSTALS 100 MG CAPSULE PO SCH ×2 (08:26→16:34)
[2023-08-28] MEDS: CIPROFLOXACIN HCL 250 MG TABLET PO SCH ×2 (08:26→21:18)
[2023-08-28] MEDS: PANTOPRAZOLE 40 MG TABLET.DR PO SCH (08:27)
[2023-08-28] MEDS: APIXABAN 5 MG TABLET PO SCH ×2 (08:27→16:34)
[2023-08-28] MEDS: risperiDONE 1 MG TABLET PO SCH (08:27)
[2023-08-28] MEDS: LINAGLIPTIN 5 MG TABLET PO SCH (08:50)
[2023-08-28] MEDS: HYDROCODONE/APAP 10/325MG TABLET PO PRN (08:58)
[2023-08-28 16:00] VITALS: BP 106/68; TEMP 97.4; O2SAT 98
[2023-08-28 16:11] LABS: BASOPHILS % (AUTO) 0.2 % (0.0-2.0); EOSINOPHILS % (AUTO) 0.6 % (0.0-6.0); HEMATOCRIT 32 % (33-45); HEMOGLOBIN 10.3 g/dL (11.5-14.8); LYMPHOCYTES # (AUTO) 2.1 K/uL (0.8-4.8); LYMPHOCYTES % (AUTO) 33.6 % (20.0-44.0); MEAN CORPUSCULAR HEMOGLOBIN 31 PG (26.0-33.0); MEAN CORPUSCULAR HGB CONC 32 g/dl (31.0-36.0); MEAN CORPUSCULAR VOLUME 97 fL (82-100); MONOCYTES # (AUTO) 0.6 K/uL (0.1-1.30); MONOCYTES % (AUTO) 10.2 % (2.0-12.0); NEUTROPHILS # (AUTO) 3.5 K/uL (1.8-8.9); NEUTROPHILS % (AUTO) 55.4 % (43.0-81.0); PLATELET COUNT (AUTO) 177 K/uL (150-450); RED BLOOD CELL COUNT(AUTO) 3.35 MIL/uL (4.0-5.2); RED CELL DISTRIBUTION WIDTH 20.3 % (11.5-15.0); WHITE BLOOD COUNT (AUTO) 6.3 K/uL (4.3-11.0)
[2023-08-28 16:27] LABS: CARBON DIOXIDE 25 mmol/L (21-32); CHLORIDE 103 mmol/L (98-107); GLUCOSE 139 mg/dL (74-106); POTASSIUM 3.4 mmol/L (3.5-5.1); SODIUM SERUM 139 mmol/L (136-145); UREA NITROGEN, BLOOD 14 mg/dL (7-18)
[2023-08-28 16:40] LABS: CHOLESTEROL 195 mg/dL (<200); HDL CHOLESTEROL 63 mg/dL (40-60); LDL 108 mg/dL (0-99); TRIGLYCERIDES 71 mg/dL (30-150)
[2023-08-28 20:00] VITALS: BP 133/75; TEMP 97.7; O2SAT 96
[2023-08-29 08:00] VITALS: BP 130/90; TEMP 97.6; O2SAT 94
[2023-08-29] MEDS: LINAGLIPTIN 5 MG TABLET PO SCH (08:18)
[2023-08-29] MEDS: NITROFURANTOIN/MONOHYDRATE MACROCRYSTALS 100 MG CAPSULE PO SCH ×2 (08:18→16:05)
[2023-08-29] MEDS: CIPROFLOXACIN HCL 250 MG TABLET PO SCH ×2 (08:18→21:10)
[2023-08-29] MEDS: risperiDONE 1 MG TABLET PO SCH (08:18)
[2023-08-29] MEDS: PANTOPRAZOLE 40 MG TABLET.DR PO SCH (08:18)
[2023-08-29] MEDS: APIXABAN 5 MG TABLET PO SCH ×2 (08:19→16:06)
[2023-08-29] MEDS: HYDROCODONE/APAP 5/325MG TABLET PO PRN (11:43)
[2023-08-29 16:00] VITALS: BP 102/57; TEMP 98.4; O2SAT 95
[2023-08-29 20:01] VITALS: BP 118/72; TEMP 98.1; O2SAT 94
[2023-08-29] MEDS: TEMAZEPAM 7.5 MG CAPSULE PO PRN (21:22)
[2023-08-30] MEDS: HYDROCODONE/APAP 5/325MG TABLET PO PRN ×2 (01:44→16:25)
[2023-08-30] MEDS: PANTOPRAZOLE 40 MG TABLET.DR PO SCH (07:30)
[2023-08-30 08:00] VITALS: BP 127/75; TEMP 97.5; O2SAT 95
[2023-08-30] MEDS: APIXABAN 5 MG TABLET PO SCH ×2 (09:02→17:20)
[2023-08-30] MEDS: CIPROFLOXACIN HCL 250 MG TABLET PO SCH ×2 (09:02→21:51)
[2023-08-30] MEDS: risperiDONE 1 MG TABLET PO SCH (09:02)
[2023-08-30] MEDS: NITROFURANTOIN/MONOHYDRATE MACROCRYSTALS 100 MG CAPSULE PO SCH ×2 (09:02→17:20)
[2023-08-30] MEDS: LINAGLIPTIN 5 MG TABLET PO SCH (09:02)
[2023-08-30] MEDS ORDERED: ERGOCALCIFEROL (VITAMIN D 2) 50,000 UNIT CAPSULE PO SCH (13:26)
[2023-08-30 16:00] VITALS: BP 107/66; TEMP 97.8; O2SAT 96
[2023-08-30 21:40] VITALS: BP 129/82; TEMP 98.4; O2SAT 98
[2023-08-30] MEDS: HYDROCODONE/APAP 10/325MG TABLET PO PRN (22:58)
[2023-08-31] MEDS: TEMAZEPAM 7.5 MG CAPSULE PO PRN ×2 (03:01→20:56)
[2023-08-31] MEDS: PANTOPRAZOLE 40 MG TABLET.DR PO SCH (07:49)
[2023-08-31 08:00] VITALS: BP 126/90; TEMP 97.7; O2SAT 98
[2023-08-31] MEDS: risperiDONE 1 MG TABLET PO SCH (08:06)
[2023-08-31] MEDS: CIPROFLOXACIN HCL 250 MG TABLET PO SCH ×2 (08:06→20:56)
[2023-08-31] MEDS: LINAGLIPTIN 5 MG TABLET PO SCH (08:07)
[2023-08-31] MEDS: APIXABAN 5 MG TABLET PO SCH ×2 (08:07→16:11)
[2023-08-31] MEDS: NITROFURANTOIN/MONOHYDRATE MACROCRYSTALS 100 MG CAPSULE PO SCH (08:08)
[2023-08-31] MEDS: HYDROCODONE/APAP 10/325MG TABLET PO PRN (10:11)
[2023-08-31 16:00] VITALS: BP 110/64; TEMP 98.7; O2SAT 95
[2023-08-31] MEDS: LEVOFLOXACIN (250MG) 250 MG TABLET PO SCH (16:10)
[2023-08-31 20:00] VITALS: BP 133/66; TEMP 98.2; O2SAT 95
[2023-09-01] MEDS: HYDROCODONE/APAP 5/325MG TABLET PO PRN ×2 (00:13→12:44)
[2023-09-01] MEDS: clonazePAM 0.5 MG TABLET PO PRN ×2 (05:28→08:05)
[2023-09-01] MEDS: HYDROCODONE/APAP 10/325MG TABLET PO PRN ×2 (06:26→16:26)
[2023-09-01 08:00] VITALS: BP 136/83; TEMP 98.7; O2SAT 97
[2023-09-01] MEDS: risperiDONE 1 MG TABLET PO SCH ×3 (08:05→16:26)
[2023-09-01] MEDS: CIPROFLOXACIN HCL 250 MG TABLET PO SCH ×2 (08:05→20:17)
[2023-09-01] MEDS: PANTOPRAZOLE 40 MG TABLET.DR PO SCH (08:05)
[2023-09-01] MEDS: APIXABAN 5 MG TABLET PO SCH ×2 (08:06→16:26)
[2023-09-01] MEDS: LINAGLIPTIN 5 MG TABLET PO SCH (08:06)
[2023-09-01 16:00] VITALS: BP 122/74; TEMP 98.7; O2SAT 96
[2023-09-01] MEDS: LEVOFLOXACIN (250MG) 250 MG TABLET PO SCH (16:28)
[2023-09-01 20:07] VITALS: BP 104/66; TEMP 98.6; O2SAT 97
[2023-09-01] MEDS: TEMAZEPAM 7.5 MG CAPSULE PO PRN (22:37)
[2023-09-02] MEDS: HYDROCODONE/APAP 5/325MG TABLET PO PRN ×2 (02:17→12:39)
[2023-09-02 08:00] VITALS: BP 104/63; TEMP 97.6; O2SAT 95
[2023-09-02] MEDS: PANTOPRAZOLE 40 MG TABLET.DR PO SCH (08:00)
[2023-09-02] MEDS: LINAGLIPTIN 5 MG TABLET PO SCH (09:05)
[2023-09-02] MEDS: CIPROFLOXACIN HCL 250 MG TABLET PO SCH ×2 (09:05→20:40)
[2023-09-02] MEDS: risperiDONE 1 MG TABLET PO SCH ×2 (09:05→16:10)
[2023-09-02] MEDS: APIXABAN 5 MG TABLET PO SCH ×2 (09:05→16:11)
[2023-09-02 16:00] VITALS: BP 123/75; TEMP 98.9; O2SAT 96
[2023-09-02] MEDS: clonazePAM 0.5 MG TABLET PO PRN (16:10)
[2023-09-02] MEDS: LEVOFLOXACIN (250MG) 250 MG TABLET PO SCH (16:10)
[2023-09-02] MEDS: HYDROCODONE/APAP 10/325MG TABLET PO PRN (21:02)
[2023-09-03 05:01] VITALS: BP 103/59; TEMP 97.9; O2SAT 94
[2023-09-03] MEDS: PANTOPRAZOLE 40 MG TABLET.DR PO SCH (07:21)
[2023-09-03 08:00] VITALS: BP 130/78; TEMP 98.2; O2SAT 95
[2023-09-03] MEDS: LINAGLIPTIN 5 MG TABLET PO SCH (08:30)
[2023-09-03] MEDS: risperiDONE 1 MG TABLET PO SCH ×2 (08:30→17:06)
[2023-09-03] MEDS: APIXABAN 5 MG TABLET PO SCH ×2 (08:31→17:07)
[2023-09-03] MEDS: clonazePAM 0.5 MG TABLET PO PRN (08:40)
[2023-09-03] MEDS: HYDROCODONE/APAP 10/325MG TABLET PO PRN (14:33)
[2023-09-03 16:00] VITALS: BP 108/70; TEMP 98.2; O2SAT 93
[2023-09-03] MEDS: LEVOFLOXACIN (250MG) 250 MG TABLET PO SCH (17:06)
[2023-09-04 08:00] VITALS: BP 119/62; TEMP 98.6; O2SAT 96
[2023-09-04] MEDS: LINAGLIPTIN 5 MG TABLET PO SCH (08:15)
[2023-09-04] MEDS: risperiDONE 1 MG TABLET PO SCH (08:15)
[2023-09-04] MEDS: PANTOPRAZOLE 40 MG TABLET.DR PO SCH (08:15)
[2023-09-04] MEDS: APIXABAN 5 MG TABLET PO SCH (08:16)
[2023-09-04] MEDS: HYDROCODONE/APAP 10/325MG TABLET PO PRN (08:37)
== END 2023-09-04 10:15 | disposition home or self-care (01) | DRG 885 ==
LOC: ER 12:11 → GPS 08-27 01:33
PROVIDERS: ADMIT Nurse Practitioner Acute Care; ATTEND Internal Medicine
DX: F29 Unspecified psychosis not due to a substance or known physiological condition (principal); I11.0 Hypertensive heart disease with heart failure; I50.32 Chronic diastolic (congestive) heart failure; E11.9 Type 2 diabetes mellitus without complications; J45.909 Unspecified asthma, uncomplicated; Z79.01 Long term (current) use of anticoagulants; F32.A Depression, unspecified; N39.0 Urinary tract infection, site not specified; Z79.82 Long term (current) use of aspirin
CPT/HCPCS: 36415; 80048-TC; 80061-TC; 81001; 82962-TC; 85025-TC; 87081-TC; 87086-TC; 97110-TC; 97116-TC; 97530-TC; A4223

== ENCOUNTER 2023-09-25 13:45 | Inpatient (IN) | payer MEDICARE, OTHER ==
[~2023-09-25] VITALS: Ht 160 cm; Wt 74.4 kg
[~2023-09-25 13:45] MED LIST changes: +ALBU18HF2 IH; -ALBU18HF2 INH; -ALPR0.5T PO; -ASPI-1420 PO; -BENA20TA9 PO; +DEXL60CA3 PO; +ERGO500040 PO; +NITR100C PO; +SITA50TA PO
[2023-09-25] MEDS ORDERED: IV NS 0.9% 1,000 ML IV ONE (14:30)
[2023-09-25 15:14] LABS: BASOPHILS % (AUTO) 0.1 % (0.0-2.0); EOSINOPHILS # (AUTO) 0.1 K/uL (0.0-0.7); EOSINOPHILS % (AUTO) 1.5 % (0.0-6.0); HEMATOCRIT 27 % (33-45); HEMOGLOBIN 8.7 g/dL (11.5-14.8); LYMPHOCYTES # (AUTO) 2.6 K/uL (0.8-4.8); LYMPHOCYTES % (AUTO) 33.5 % (20.0-44.0); MEAN CORPUSCULAR HEMOGLOBIN 32 PG (26.0-33.0); MEAN CORPUSCULAR HGB CONC 32 g/dl (31.0-36.0); MEAN CORPUSCULAR VOLUME 99 fL (82-100); MONOCYTES # (AUTO) 0.6 K/uL (0.1-1.30); NEUTROPHILS # (AUTO) 4.5 K/uL (1.8-8.9); NEUTROPHILS % (AUTO) 56.9 % (43.0-81.0); PLATELET COUNT (AUTO) 180 K/uL (150-450); RED BLOOD CELL COUNT(AUTO) 2.73 MIL/uL (4.0-5.2); RED CELL DISTRIBUTION WIDTH 17.7 % (11.5-15.0); WHITE BLOOD COUNT (AUTO) 7.8 K/uL (4.3-11.0)
[2023-09-25] MEDS ORDERED: BACL10TA PO (15:38)
[2023-09-25] MEDS ORDERED: METF-440 PO (15:38)
[2023-09-25] MEDS ORDERED: POTA10CA43 PO (15:38)
[2023-09-25] MEDS ORDERED: RISP0.5T65 PO (15:38)
[2023-09-25] MEDS ORDERED: BENA20TA9 PO (15:38)
[2023-09-25 15:39] LABS: CALCIUM, SERUM 8.1 mg/dL (8.5-10.1); CARBON DIOXIDE 25 mmol/L (21-32); CHLORIDE 100 mmol/L (98-107); CREATININE 2.6 mg/dL (0.6-1.3); GLUCOSE 161 mg/dL (74-106); POTASSIUM 3.3 mmol/L (3.5-5.1); SODIUM SERUM 133 mmol/L (136-145); UREA NITROGEN, BLOOD 32 mg/dL (7-18)
[2023-09-25 15:44] LABS: LACTIC ACID 1.3 mmol/L (0.4-2.0)
[2023-09-25 15:52] LABS: ALANINE AMINOTRANSFERASE 18 U/L (12-78); ALBUMIN 2.3 g/dL (3.4-5.0); ALKALINE PHOSPHATASE 51 U/L (46-116); ASPARTATE AMINOTRANSFERASE 52 U/L (15-37); BILIRUBIN,TOTAL 0.2 mg/dL (0.2-1.0); NT-PRO BNP 205 pg/mL (0-125); TOTAL PROTEIN, SERUM 5.9 g/dL (6.4-8.2)
[2023-09-25] MEDS ORDERED: POTASSIUM CHLORIDE 20 MEQ TAB.PRT.SR PO ONE ×2 (16:52→17:00)
[2023-09-25] MEDS ORDERED: MAG HYDROX/AL HYDROX/SIMETH 30 ML UDC ONE (19:21)
[2023-09-25] MEDS ORDERED: MAG HYDROX/AL HYDROX/SIMETH 30 ML UDC PO ONE (19:30)
[2023-09-25 22:10] VITALS: BP 128/76; TEMP 98.3; O2SAT 97
[2023-09-25] MEDS ORDERED: TEMAZEPAM 15 MG CAPSULE PO PRN (22:30)
[2023-09-25] MEDS ORDERED: Z GUARD REMEDY 4 OZ OINT TP PRN (22:30)
[2023-09-25] MEDS ORDERED: MAG HYDROX/AL HYDROX/SIMETH 30 ML UDC PO PRN (22:30)
[2023-09-25] MEDS ORDERED: MORPHINE SULFATE INJ 2 MG/ML DISP.SYRIN IV PRN (22:30)
[2023-09-25] MEDS ORDERED: ACETAMINOPHEN 325 MG TABLET PO PRN (22:30)
[2023-09-25] MEDS ORDERED: MAGNESIUM HYDROXIDE 30 ML UDC PO PRN (22:30)
[2023-09-25] MEDS ORDERED: IV NS 0.9% 1,000 ML IV PRN (22:30)
[2023-09-25] MEDS ORDERED: DEXTROSE 50%-WATER 50 ML DISP.SYRIN IV PRN (22:30)
[2023-09-25] MEDS ORDERED: ONDANSETRON HCL/PF 4 MG/2 ML VIAL IVP PRN (22:30)
[2023-09-26] MEDS: HYDROCODONE/APAP 5/325MG TABLET PO PRN ×2 (00:40→08:34)
[2023-09-26 07:30] VITALS: BP 142/74; TEMP 98.1; O2SAT 97
[2023-09-26] MEDS: BLOOD SUGAR DIAGNOSTIC 1 EACH STRIP IN SCH ×4 (07:39→22:00)
[2023-09-26] MEDS: INSULIN REGULAR, HUMAN 100 UNIT/ML 3 ML VIAL SQ PRN ×4 (07:40→23:03)
[2023-09-26] MEDS: PANTOPRAZOLE 40 MG TABLET.DR PO SCH (07:45)
[2023-09-26] MEDS ORDERED: ALBUTEROL FS 2.5 MG/3 ML VIAL.NEB NEB PRN (14:30)
[2023-09-26 16:00] VITALS: BP 116/88; TEMP 99.1; O2SAT 99
[2023-09-26] MEDS: APIXABAN 5 MG TABLET PO SCH (18:08)
[2023-09-26] MEDS: risperiDONE 0.25 MG TABLET PO SCH (18:08)
[2023-09-26 22:05] VITALS: BP 154/93; TEMP 99; O2SAT 96
[2023-09-27 07:30] VITALS: BP 112/68; TEMP 99; O2SAT 95
[2023-09-27] MEDS: PANTOPRAZOLE 40 MG TABLET.DR PO SCH (07:35)
[2023-09-27] MEDS: BLOOD SUGAR DIAGNOSTIC 1 EACH STRIP IN SCH ×4 (07:36→22:05)
[2023-09-27] MEDS: INSULIN REGULAR, HUMAN 100 UNIT/ML 3 ML VIAL SQ PRN ×5 (07:37→22:08)
[2023-09-27 07:46] LABS: BASOPHILS % (AUTO) 0.2 % (0.0-2.0); EOSINOPHILS # (AUTO) 0.1 K/uL (0.0-0.7); EOSINOPHILS % (AUTO) 0.8 % (0.0-6.0); HEMATOCRIT 29 % (33-45); HEMOGLOBIN 9.5 g/dL (11.5-14.8); LYMPHOCYTES # (AUTO) 2.1 K/uL (0.8-4.8); LYMPHOCYTES % (AUTO) 21.9 % (20.0-44.0); MEAN CORPUSCULAR HEMOGLOBIN 32 PG (26.0-33.0); MEAN CORPUSCULAR HGB CONC 33 g/dl (31.0-36.0); MEAN CORPUSCULAR VOLUME 97 fL (82-100); MONOCYTES # (AUTO) 0.7 K/uL (0.1-1.30); MONOCYTES % (AUTO) 7.3 % (2.0-12.0); NEUTROPHILS # (AUTO) 6.7 K/uL (1.8-8.9); NEUTROPHILS % (AUTO) 69.8 % (43.0-81.0); PLATELET COUNT (AUTO) 203 K/uL (150-450); RED BLOOD CELL COUNT(AUTO) 2.97 MIL/uL (4.0-5.2); RED CELL DISTRIBUTION WIDTH 17.1 % (11.5-15.0); WHITE BLOOD COUNT (AUTO) 9.6 K/uL (4.3-11.0)
[2023-09-27 08:31] LABS: ALANINE AMINOTRANSFERASE 21 U/L (12-78); ALBUMIN 2.4 g/dL (3.4-5.0); ALKALINE PHOSPHATASE 59 U/L (46-116); ASPARTATE AMINOTRANSFERASE 23 U/L (15-37); BILIRUBIN,TOTAL 0.5 mg/dL (0.2-1.0); CARBON DIOXIDE 28 mmol/L (21-32); CHLORIDE 100 mmol/L (98-107); CREATINE KINASE, TOTAL 275 U/L (26-192); CREATININE 0.9 mg/dL (0.6-1.3); GLUCOSE 127 mg/dL (74-106); MAGNESIUM 1.3 mg/dL (1.8-2.4); PHOSPHORUS 2.6 mg/dL (2.5-4.9); POTASSIUM 3.8 mmol/L (3.5-5.1); SODIUM SERUM 134 mmol/L (136-145); TOTAL PROTEIN, SERUM 6.2 g/dL (6.4-8.2); UREA NITROGEN, BLOOD 12 mg/dL (7-18)
[2023-09-27] MEDS ORDERED: ERGOCALCIFEROL (VITAMIN D 2) 50,000 UNIT CAPSULE PO SCH (09:00)
[2023-09-27] MEDS: risperiDONE 0.25 MG TABLET PO SCH ×2 (09:48→17:29)
[2023-09-27] MEDS: BACLOFEN (10 MG) 10 MG TABLET PO SCH (09:48)
[2023-09-27] MEDS: BENAZEPRIL HCL 20 MG TABLET PO SCH (09:50)
[2023-09-27] MEDS: APIXABAN 5 MG TABLET PO SCH ×2 (09:51→17:30)
[2023-09-27] MEDS ORDERED: MAGNESIUM OXIDE 400 MG TABLET PO ONE (10:00)
[2023-09-27] MEDS: HYDROCODONE/APAP 5/325MG TABLET PO PRN (10:06)
[2023-09-27 16:00] VITALS: BP 117/64; TEMP 97.5; O2SAT 97
[2023-09-27] MEDS: GLUCERNA SHAKE 237 ML CAN PO SCH (17:29)
[2023-09-27 20:00] VITALS: BP 102/56; TEMP 98.6; O2SAT 99
[2023-09-28 04:00] VITALS: BP 106/48; TEMP 98.6; O2SAT 100
[2023-09-28 05:07] LABS: PTH, INTACT 7 pg/mL (15-65)
[2023-09-28] MEDS: BLOOD SUGAR DIAGNOSTIC 1 EACH STRIP IN SCH ×4 (06:10→22:27)
[2023-09-28] MEDS: INSULIN REGULAR, HUMAN 100 UNIT/ML 3 ML VIAL SQ PRN ×3 (06:13→22:31)
[2023-09-28 07:50] LABS: CALCIUM, SERUM 9.1 mg/dL (8.5-10.1)
[2023-09-28] MEDS: PANTOPRAZOLE 40 MG TABLET.DR PO SCH (08:18)
[2023-09-28] MEDS: GLUCERNA SHAKE 237 ML CAN PO SCH ×3 (08:18→17:00)
[2023-09-28] MEDS: risperiDONE 0.25 MG TABLET PO SCH ×2 (08:20→17:00)
[2023-09-28] MEDS: MEGESTROL ACETATE SUSP 400 MG/10 ML UDC PO SCH ×2 (08:20→17:00)
[2023-09-28] MEDS: BACLOFEN (10 MG) 10 MG TABLET PO SCH (08:22)
[2023-09-28] MEDS: BENAZEPRIL HCL 20 MG TABLET PO SCH (08:25)
[2023-09-28] MEDS: APIXABAN 5 MG TABLET PO SCH ×2 (08:26→17:01)
[2023-09-28 09:09] LABS: *SPE A/G RATIO 0.7 (0.7-1.7); *SPE ALBUMIN 2.2 g/dL (2.9-4.4); *SPE ALPHA-1-GLOBULIN 0.4 g/dL (0.0-0.4); *SPE ALPHA-2-GLOBULIN 0.9 g/dL (0.4-1.0); *SPE BETA GLOBULIN 1.1 g/dL (0.7-1.3); *SPE GLOBULIN, TOTAL 3.1 g/dL (2.2-3.9); *SPE M-SPIKE Not Observed g/dL (Not Observed); *SPE PROTEIN TOTAL 5.3 g/dL (6.0-8.5); *SPEGAMMA GLOBULIN 0.7 g/dL (0.4-1.8)
[2023-09-28 11:17] LABS: APPEARANCE,URINE CLEAR (CLEAR); BILIRUBIN,URINE NEGATIVE (NEGATIVE); BLOOD, URINE 1+ Ery/uL (NEGATIVE); COLOR,URINE YELLOW (YELLOW); KETONES,URINE NEGATIVE (NEGATIVE); LEUKOCYTE ESTERASE ,URINE 1+ (NEGATIVE); NITRITE, URINE NEGATIVE (NEGATIVE); PH,URINE 6.5 (5.0-8.0); PROTEIN,URINE NEGATIVE (NEGATIVE); UGLUCOSE NEGATIVE (NEGATIVE); UROBILINOGEN,URINE 0.2 EU/dL (0.2)
[2023-09-28 11:27] LABS: ADD URINE CULTURE YES; BACTERIA,URINE Few /HPF (None Seen); RBC,URINE 0-2 /HPF (0-2); SQUAMOUS EPITHELIAL CELL,UR Rare /HPF (None Seen)
[2023-09-28 11:48] LABS: CREATININE, URINE 85.4 MG/DL (30.0-125.0); URINE TOTAL PROTEIN 28.4 mg/dL (0-11.9)
[2023-09-28 12:35] LABS: EOSINOPHIL,URINE Few
[2023-09-28 20:00] VITALS: BP 136/75; TEMP 99.1; O2SAT 100
[2023-09-28 20:41] VITALS: BP 136/75; TEMP 99.1; O2SAT 100
[2023-09-29] MEDS: BLOOD SUGAR DIAGNOSTIC 1 EACH STRIP IN SCH ×2 (06:04→11:23)
[2023-09-29] MEDS: INSULIN REGULAR, HUMAN 100 UNIT/ML 3 ML VIAL SQ PRN ×2 (06:05→11:26)
[2023-09-29 07:25] LABS: CALCIUM, SERUM 8.5 mg/dL (8.5-10.1); CREATININE 1.1 mg/dL (0.6-1.3); POTASSIUM 3.6 mmol/L (3.5-5.1)
[2023-09-29 08:00] VITALS: BP 111/74; TEMP 97.9; O2SAT 94
[2023-09-29] MEDS: MEGESTROL ACETATE SUSP 400 MG/10 ML UDC PO SCH ×2 (09:06→16:36)
[2023-09-29] MEDS: risperiDONE 0.25 MG TABLET PO SCH ×2 (09:06→16:36)
[2023-09-29] MEDS: BACLOFEN (10 MG) 10 MG TABLET PO SCH (09:06)
[2023-09-29 09:07] VITALS: BP 111/72
[2023-09-29] MEDS: APIXABAN 5 MG TABLET PO SCH ×2 (09:07→16:37)
[2023-09-29] MEDS: BENAZEPRIL HCL 20 MG TABLET PO SCH (09:07)
[2023-09-29] MEDS: PANTOPRAZOLE 40 MG TABLET.DR PO SCH (09:07)
[2023-09-29] MEDS: GLUCERNA SHAKE 237 ML CAN PO SCH ×2 (09:09→12:06)
[2023-09-29] MEDS: HYDROCODONE/APAP 5/325MG TABLET PO PRN (09:12)
== END 2023-09-29 17:47 | disposition left against medical advice (07) | DRG 682 ==
LOC: ER 13:56 → TELE 21:31 → MED 23:32
PROVIDERS: ADMIT Nurse Practitioner Acute Care; ATTEND Internal Medicine
DX: N17.0 Acute kidney failure with tubular necrosis (principal); G93.41 Metabolic encephalopathy; I50.32 Chronic diastolic (congestive) heart failure; E87.1 Hypo-osmolality and hyponatremia; E44.0 Moderate protein-calorie malnutrition; I13.0 Hypertensive heart and chronic kidney disease with heart failure and stage 1 through stage 4 chronic kidney disease, or unspecified chronic kidney disease; E86.0 Dehydration; E86.1 Hypovolemia; D63.8 Anemia in other chronic diseases classified elsewhere; E87.6 Hypokalemia; E88.09 Other disorders of plasma-protein metabolism, not elsewhere classified; F41.9 Anxiety disorder, unspecified; G89.29 Other chronic pain; J45.909 Unspecified asthma, uncomplicated; K44.9 Diaphragmatic hernia without obstruction or gangrene; R62.7 Adult failure to thrive; Z79.84 Long term (current) use of oral hypoglycemic drugs; Z83.3 Family history of diabetes mellitus; Z88.0 Allergy status to penicillin; Z20.822 Contact with and (suspected) exposure to COVID-19; N18.9 Chronic kidney disease, unspecified; F32.A Depression, unspecified; R53.1 Weakness; E11.22 Type 2 diabetes mellitus with diabetic chronic kidney disease; V89.2XXS Person injured in unspecified motor-vehicle accident, traffic, sequela; Z68.29 Body mass index [BMI] 29.0-29.9, adult; M89.8X9 Other specified disorders of bone, unspecified site; Z79.01 Long term (current) use of anticoagulants
CPT/HCPCS: 36415; 70450-TC; 71045-TC; 80048-TC; 80053-TC; 81001; 82550-TC; 82553; 82570-TC; 82962-TC; 83605-TC; 83735-TC; 83880; 83970; 84100-TC; 84155; 84165; 84300-TC; 84484-TC; 85025-TC; 87086-TC; 97110-TC; 97112-TC; 97116-TC; 97530-TC; A4223; G0378; J1815; J2405; J7030

== ENCOUNTER 2023-10-04 21:05 | Inpatient (IN) | payer MEDICARE, OTHER ==
[~2023-10-04] VITALS: Ht 162.6 cm; Wt 62.6 kg
[~2023-10-04 21:05] MED LIST changes: +BACL10TA PO; +BENA20TA9 PO; -HYDR-4354 PO; +METF-440 PO; -NITR100C PO; +POTA10CA43 PO; +RISP0.5T65 PO; -SITA50TA PO
[2023-10-04] MEDS: IV NS 0.9% 1,000 ML IV ONE (23:00)
[2023-10-04 23:24] LABS: BASOPHILS % (AUTO) 0.2 % (0.0-2.0); EOSINOPHILS # (AUTO) 0.3 K/uL (0.0-0.7); EOSINOPHILS % (AUTO) 2.1 % (0.0-6.0); HEMATOCRIT 28 % (33-45); HEMOGLOBIN 8.9 g/dL (11.5-14.8); LYMPHOCYTES # (AUTO) 1.4 K/uL (0.8-4.8); LYMPHOCYTES % (AUTO) 10.9 % (20.0-44.0); MEAN CORPUSCULAR HEMOGLOBIN 31 PG (26.0-33.0); MEAN CORPUSCULAR HGB CONC 32 g/dl (31.0-36.0); MEAN CORPUSCULAR VOLUME 97 fL (82-100); MONOCYTES # (AUTO) 0.7 K/uL (0.1-1.30); MONOCYTES % (AUTO) 5.1 % (2.0-12.0); NEUTROPHILS # (AUTO) 10.6 K/uL (1.8-8.9); NEUTROPHILS % (AUTO) 81.7 % (43.0-81.0); PLATELET COUNT (AUTO) 190 K/uL (150-450); RED BLOOD CELL COUNT(AUTO) 2.86 MIL/uL (4.0-5.2); RED CELL DISTRIBUTION WIDTH 17.2 % (11.5-15.0)
[2023-10-04 23:30] LABS: CALCIUM, SERUM 8.4 mg/dL (8.5-10.1); CARBON DIOXIDE 23 mmol/L (21-32); CHLORIDE 102 mmol/L (98-107); CREATININE 3.3 mg/dL (0.6-1.3); GLUCOSE 125 mg/dL (74-106); POTASSIUM 5.1 mmol/L (3.5-5.1); SODIUM SERUM 138 mmol/L (136-145); UREA NITROGEN, BLOOD 51 mg/dL (7-18)
[2023-10-04] MEDS ORDERED: NOREPINEPHRINE 8 MG in IV NS 0.9% 242 ML IV PRN (23:30)
[2023-10-04 23:38] LABS: LACTIC ACID 0.8 mmol/L (0.4-2.0)
[2023-10-04 23:43] LABS: ALANINE AMINOTRANSFERASE 11 U/L (12-78); ALBUMIN 2.3 g/dL (3.4-5.0); ALKALINE PHOSPHATASE 52 U/L (46-116); ASPARTATE AMINOTRANSFERASE 20 U/L (15-37); BILIRUBIN,TOTAL 0.2 mg/dL (0.2-1.0); NT-PRO BNP 1142 pg/mL (0-125); TOTAL PROTEIN, SERUM 6.6 g/dL (6.4-8.2)
[2023-10-05] VITALS (64 sets, daily range): BP systolic 87–134; BP diastolic 45–88; TEMP 97.8–99.5; O2SAT 89–100
[2023-10-05] MEDS ORDERED: ACETAMINOPHEN 325 MG TABLET PO PRN (01:30)
[2023-10-05] MEDS ORDERED: ONDANSETRON HCL/PF 4 MG/2 ML VIAL IVP PRN (01:30)
[2023-10-05] MEDS ORDERED: ZOLPIDEM TARTRATE 5 MG TABLET PO PRN (01:30)
[2023-10-05] MEDS ORDERED: NOREPINEPHRINE 8 MG in IV NS 0.9% 250 ML IV PRN (01:30)
[2023-10-05] MEDS ORDERED: MAGNESIUM HYDROXIDE 30 ML UDC PO PRN (01:30)
[2023-10-05] MEDS ORDERED: Z GUARD REMEDY 4 OZ OINT TP PRN (01:30)
[2023-10-05] MEDS ORDERED: DEXTROSE 50%-WATER 50 ML DISP.SYRIN IV PRN (01:30)
[2023-10-05] MEDS: IV NS 0.9% 1,000 ML IV ONE (02:46)
[2023-10-05] MEDS ORDERED: CEFEPIME 1 GM VIAL ONE (03:07)
[2023-10-05] MEDS: CEFEPIME 1 GM in IV D5W 50 ML IV ONE (03:14)
[2023-10-05] MEDS: VANCOMYCIN 1.5 GM in IV D5W 500ml IV ONE (03:43)
[2023-10-05] MEDS: VANCOMYCIN 1 GM /D5W 250 ML PB IV ONE (03:44)
[2023-10-05 05:23] LABS: BASOPHILS % (AUTO) 0.2 % (0.0-2.0); EOSINOPHILS # (AUTO) 0.1 K/uL (0.0-0.7); EOSINOPHILS % (AUTO) 0.5 % (0.0-6.0); HEMATOCRIT 27 % (33-45); HEMOGLOBIN 8.4 g/dL (11.5-14.8); LYMPHOCYTES # (AUTO) 2.3 K/uL (0.8-4.8); LYMPHOCYTES % (AUTO) 20.4 % (20.0-44.0); MEAN CORPUSCULAR HEMOGLOBIN 31 PG (26.0-33.0); MEAN CORPUSCULAR HGB CONC 31 g/dl (31.0-36.0); MEAN CORPUSCULAR VOLUME 100 fL (82-100); MONOCYTES # (AUTO) 0.7 K/uL (0.1-1.30); MONOCYTES % (AUTO) 6.3 % (2.0-12.0); NEUTROPHILS # (AUTO) 8.3 K/uL (1.8-8.9); NEUTROPHILS % (AUTO) 72.6 % (43.0-81.0); PLATELET COUNT (AUTO) 161 K/uL (150-450); RED BLOOD CELL COUNT(AUTO) 2.68 MIL/uL (4.0-5.2); WHITE BLOOD COUNT (AUTO) 11.5 K/uL (4.3-11.0)
[2023-10-05 05:32] LABS: CALCIUM, SERUM 8.4 mg/dL (8.5-10.1); CARBON DIOXIDE 20 mmol/L (21-32); CHLORIDE 105 mmol/L (98-107); CREATININE 2.5 mg/dL (0.6-1.3); GLUCOSE 161 mg/dL (74-106); POTASSIUM 4.1 mmol/L (3.5-5.1); SODIUM SERUM 136 mmol/L (136-145); UREA NITROGEN, BLOOD 45 mg/dL (7-18)
[2023-10-05 05:38] LABS: ALANINE AMINOTRANSFERASE 12 U/L (12-78); ALBUMIN 2.3 g/dL (3.4-5.0); ALKALINE PHOSPHATASE 51 U/L (46-116); ASPARTATE AMINOTRANSFERASE 19 U/L (15-37); BILIRUBIN,TOTAL 0.3 mg/dL (0.2-1.0); MAGNESIUM 1.8 mg/dL (1.8-2.4); TOTAL PROTEIN, SERUM 6.5 g/dL (6.4-8.2)
[2023-10-05 05:39] LABS: LACTIC ACID 1.1 mmol/L (0.4-2.0)
[2023-10-05] MEDS: NOREPINEPHRINE 8 MG in IV NS 0.9% 250 ML IV PRN (06:42)
[2023-10-05] MEDS: BLOOD SUGAR DIAGNOSTIC 1 EACH STRIP IN SCH (07:52)
[2023-10-05] MEDS ORDERED: ALBUTEROL FS 2.5 MG/3 ML VIAL.NEB IH PRN (08:00)
[2023-10-05] MEDS: BACLOFEN (10 MG) 10 MG TABLET PO SCH (08:38)
[2023-10-05] MEDS: HYDROCORTISONE SOD SUCCINATE 100 MG/2 ML VIAL IV SCH (08:38)
[2023-10-05] MEDS: risperiDONE 0.25 MG TABLET PO SCH (08:38)
[2023-10-05] MEDS: PANTOPRAZOLE 40 MG TABLET.DR PO SCH (08:38)
[2023-10-05] MEDS: APIXABAN 5 MG TABLET PO SCH (08:40)
[2023-10-05] MEDS ORDERED: PANTOPRAZOLE 40 MG VIAL IV SCH (09:00)
[2023-10-05 09:02] LABS: THYROID STIMULATING HORMONE 0.546 uIU/mL (0.358-3.74)
[2023-10-05] MEDS: INSULIN REGULAR, HUMAN 100 UNIT/ML 3 ML VIAL SQ PRN (12:03)
[2023-10-05 14:55] LABS: CREATININE, URINE 38.5 MG/DL (30.0-125.0); URINE TOTAL PROTEIN 57.2 mg/dL (0-11.9)
[2023-10-05 15:13] LABS: APPEARANCE,URINE CLEAR (CLEAR); BILIRUBIN,URINE NEGATIVE (NEGATIVE); BLOOD, URINE 2+ Ery/uL (NEGATIVE); COLOR,URINE YELLOW (YELLOW); KETONES,URINE TRACE mg/dL (NEGATIVE); LEUKOCYTE ESTERASE ,URINE TRACE (NEGATIVE); NITRITE, URINE NEGATIVE (NEGATIVE); PH,URINE 5.5 (5.0-8.0); PROTEIN,URINE 1+ mg/dl (NEGATIVE); UGLUCOSE NEGATIVE (NEGATIVE); UROBILINOGEN,URINE 0.2 EU/dL (0.2)
[2023-10-05 15:30] LABS: ADD URINE CULTURE NO; BACTERIA,URINE None seen /HPF (None Seen)
[2023-10-05 15:31] LABS: MUCUS,URINE Moderate /LPF (None Seen)
[2023-10-05 16:19] LABS: EOSINOPHIL,URINE None Seen
[2023-10-05] MEDS: CEFEPIME 1 GM in IV D5W 50 ML IV SCH (19:58)
[2023-10-06] VITALS (74 sets, daily range): BP systolic 82–132; BP diastolic 40–98; TEMP 97.8–99; O2SAT 92–100
[2023-10-06 03:29] LABS: HEMATOCRIT 27 % (33-45); HEMOGLOBIN 8.6 g/dL (11.5-14.8); LYMPHOCYTES # (AUTO) 0.9 K/uL (0.8-4.8); LYMPHOCYTES % (AUTO) 10.2 % (20.0-44.0); MEAN CORPUSCULAR HEMOGLOBIN 32 PG (26.0-33.0); MEAN CORPUSCULAR HGB CONC 32 g/dl (31.0-36.0); MEAN CORPUSCULAR VOLUME 98 fL (82-100); MONOCYTES # (AUTO) 0.2 K/uL (0.1-1.30); MONOCYTES % (AUTO) 2.3 % (2.0-12.0); NEUTROPHILS # (AUTO) 7.9 K/uL (1.8-8.9); NEUTROPHILS % (AUTO) 87.5 % (43.0-81.0); PLATELET COUNT (AUTO) 191 K/uL (150-450); RED BLOOD CELL COUNT(AUTO) 2.72 MIL/uL (4.0-5.2); RED CELL DISTRIBUTION WIDTH 16.6 % (11.5-15.0)
[2023-10-06 03:43] LABS: ALBUMIN 2.1 g/dL (3.4-5.0); BILIRUBIN,TOTAL 0.2 mg/dL (0.2-1.0); CALCIUM, SERUM 8.3 mg/dL (8.5-10.1); CREATININE 1.3 mg/dL (0.6-1.3); MAGNESIUM 1.4 mg/dL (1.8-2.4); PHOSPHORUS 2.8 mg/dL (2.5-4.9); POTASSIUM 3.7 mmol/L (3.5-5.1); TOTAL PROTEIN, SERUM 6.2 g/dL (6.4-8.2)
[2023-10-06 03:45] LABS: CREATINE KINASE, TOTAL 91 U/L (26-192)
[2023-10-06] MEDS: Magnesium 1GM/D5W 100ML PREMIX 100 ML IV SCH (08:41)
[2023-10-06] MEDS: VANCOMYCIN HCL 0.75 GM in IV D5W 250 ML IV SCH (10:03)
[2023-10-06] MEDS ORDERED: VANCOMYCIN HCL 0.75 GM in IV D5W 250 ML IV SCH (16:00)
[2023-10-07] VITALS (14 sets, daily range): BP systolic 95–135; BP diastolic 55–109; TEMP 97.7–98.4; O2SAT 97–100
[2023-10-07 04:26] LABS: HEMATOCRIT 25 % (33-45); HEMOGLOBIN 8.1 g/dL (11.5-14.8); LYMPHOCYTES # (AUTO) 1.1 K/uL (0.8-4.8); LYMPHOCYTES % (AUTO) 10.9 % (20.0-44.0); MEAN CORPUSCULAR HEMOGLOBIN 31 PG (26.0-33.0); MEAN CORPUSCULAR HGB CONC 33 g/dl (31.0-36.0); MEAN CORPUSCULAR VOLUME 96 fL (82-100); MONOCYTES # (AUTO) 0.3 K/uL (0.1-1.30); MONOCYTES % (AUTO) 2.9 % (2.0-12.0); NEUTROPHILS # (AUTO) 8.5 K/uL (1.8-8.9); NEUTROPHILS % (AUTO) 86.2 % (43.0-81.0); PLATELET COUNT (AUTO) 194 K/uL (150-450); RED CELL DISTRIBUTION WIDTH 16.3 % (11.5-15.0); WHITE BLOOD COUNT (AUTO) 9.9 K/uL (4.3-11.0)
[2023-10-07 04:41] LABS: CALCIUM, SERUM 8.7 mg/dL (8.5-10.1); CREATININE 1.1 mg/dL (0.6-1.3); POTASSIUM 3.8 mmol/L (3.5-5.1)
[2023-10-07 07:07] LABS: PTH, INTACT 37 pg/mL (15-65)
[2023-10-07 08:08] LABS: *SPE A/G RATIO 0.7 (0.7-1.7); *SPE ALBUMIN 2.2 g/dL (2.9-4.4); *SPE ALPHA-1-GLOBULIN 0.4 g/dL (0.0-0.4); *SPE ALPHA-2-GLOBULIN 1.1 g/dL (0.4-1.0); *SPE BETA GLOBULIN 1.1 g/dL (0.7-1.3); *SPE GLOBULIN, TOTAL 3.3 g/dL (2.2-3.9); *SPE M-SPIKE Not Observed g/dL (Not Observed); *SPE PROTEIN TOTAL 5.5 g/dL (6.0-8.5); *SPEGAMMA GLOBULIN 0.7 g/dL (0.4-1.8)
[2023-10-07] MEDS: SOD FERRIC GLUC 125 MG in IV NS 0.9% 100 ML IV SCH (14:28)
[2023-10-07] MEDS: K PHOS NEUTRAL 250 MG TABLET PO ONE (16:12)
[2023-10-07] MEDS: PROSOURCE / PROSTAT (PYXIS) 30 ML UDC GT SCH (17:00)
[2023-10-07] MEDS: GLUCERNA SHAKE 237 ML CAN PO SCH (17:00)
[2023-10-08] VITALS: BP 143/71; TEMP 97.7; O2SAT 97
[2023-10-08 04:00] VITALS: BP 132/79; TEMP 98; O2SAT 97
[2023-10-08 07:07] LABS: BASOPHILS % (AUTO) 0.1 % (0.0-2.0); HEMATOCRIT 28 % (33-45); HEMOGLOBIN 9.2 g/dL (11.5-14.8); LYMPHOCYTES # (AUTO) 1.4 K/uL (0.8-4.8); LYMPHOCYTES % (AUTO) 14.6 % (20.0-44.0); MEAN CORPUSCULAR HEMOGLOBIN 32 PG (26.0-33.0); MEAN CORPUSCULAR HGB CONC 33 g/dl (31.0-36.0); MEAN CORPUSCULAR VOLUME 96 fL (82-100); MONOCYTES # (AUTO) 0.6 K/uL (0.1-1.30); MONOCYTES % (AUTO) 6.2 % (2.0-12.0); NEUTROPHILS # (AUTO) 7.5 K/uL (1.8-8.9); NEUTROPHILS % (AUTO) 79.1 % (43.0-81.0); PLATELET COUNT (AUTO) 223 K/uL (150-450); RED BLOOD CELL COUNT(AUTO) 2.91 MIL/uL (4.0-5.2); RED CELL DISTRIBUTION WIDTH 15.9 % (11.5-15.0); WHITE BLOOD COUNT (AUTO) 9.4 K/uL (4.3-11.0)
[2023-10-08 07:33] LABS: CARBON DIOXIDE 23 mmol/L (21-32); CHLORIDE 108 mmol/L (98-107); CREATININE 1.3 mg/dL (0.6-1.3); GLUCOSE 160 mg/dL (74-106); MAGNESIUM 1.8 mg/dL (1.8-2.4); PHOSPHORUS 2.7 mg/dL (2.5-4.9); POTASSIUM 4.2 mmol/L (3.5-5.1); SODIUM SERUM 140 mmol/L (136-145); UREA NITROGEN, BLOOD 33 mg/dL (7-18)
[2023-10-08 08:00] VITALS: BP 140/85; TEMP 97.8; O2SAT 97
[2023-10-08 12:00] VITALS: BP 126/74; TEMP 97.8; O2SAT 97
[2023-10-08 16:00] VITALS: BP 121/79; TEMP 98.1; O2SAT 99
[2023-10-08 20:00] VITALS: BP 127/93; TEMP 98.8; O2SAT 98
[2023-10-09] VITALS: BP 137/74; TEMP 98.4; O2SAT 98
[2023-10-09 04:00] VITALS: BP 103/52; TEMP 97.9; O2SAT 97
[2023-10-09 08:00] VITALS: BP 127/48; TEMP 98.1; O2SAT 97
[2023-10-09 12:00] VITALS: BP 143/78; TEMP 98.5; O2SAT 97
[2023-10-09] MEDS: MAG HYDROX/AL HYDROX/SIMETH 30 ML UDC PO PRN (14:13)
[2023-10-09 16:06] VITALS: BP 135/68; TEMP 98.3; O2SAT 98
[2023-10-09 20:00] VITALS: BP 156/82; TEMP 97.9; O2SAT 99
[2023-10-09] MEDS ORDERED: VANCOMYCIN HCL 0.75 GM in IV D5W 250 ML IV SCH (23:00)
[2023-10-10] VITALS: BP 146/78; TEMP 97.9; O2SAT 99
[2023-10-10 04:00] VITALS: BP 137/68; TEMP 98.5; O2SAT 100
[2023-10-10 08:00] VITALS: BP 143/75; TEMP 98.8; O2SAT 98
[2023-10-10 12:00] VITALS: BP 111/58; TEMP 98.6; O2SAT 100
[2023-10-10 16:00] VITALS: BP 125/70; TEMP 98.2; O2SAT 99
[2023-10-10 20:00] VITALS: BP 126/71; TEMP 98.4; O2SAT 99
[2023-10-11] VITALS: BP 126/71; TEMP 98.4; O2SAT 99
[2023-10-11] MEDS ORDERED: MENTHOL/CETYLPYRD (CEPACOL) 1 LOZ LOZENGE ONE (02:15)
[2023-10-11] MEDS: MENTHOL/CETYLPYRD (CEPACOL) 1 LOZ LOZENGE PO PRN (02:17)
[2023-10-11 04:00] VITALS: BP 135/75; TEMP 98.1; O2SAT 99
[2023-10-11 07:03] LABS: HEMATOCRIT 28 % (33-45); LYMPHOCYTES # (AUTO) 1.7 K/uL (0.8-4.8); LYMPHOCYTES % (AUTO) 13.2 % (20.0-44.0); MEAN CORPUSCULAR HEMOGLOBIN 31 PG (26.0-33.0); MEAN CORPUSCULAR HGB CONC 32 g/dl (31.0-36.0); MEAN CORPUSCULAR VOLUME 96 fL (82-100); MONOCYTES # (AUTO) 0.8 K/uL (0.1-1.30); NEUTROPHILS # (AUTO) 10.3 K/uL (1.8-8.9); NEUTROPHILS % (AUTO) 80.8 % (43.0-81.0); PLATELET COUNT (AUTO) 214 K/uL (150-450); RED BLOOD CELL COUNT(AUTO) 2.92 MIL/uL (4.0-5.2); RED CELL DISTRIBUTION WIDTH 16.2 % (11.5-15.0); WHITE BLOOD COUNT (AUTO) 12.8 K/uL (4.3-11.0)
[2023-10-11 07:32] LABS: CALCIUM, SERUM 8.5 mg/dL (8.5-10.1); CREATININE 1.2 mg/dL (0.6-1.3); MAGNESIUM 1.6 mg/dL (1.8-2.4); PHOSPHORUS 1.8 mg/dL (2.5-4.9); POTASSIUM 3.5 mmol/L (3.5-5.1)
[2023-10-11 08:00] VITALS: BP 135/78; TEMP 98.3; O2SAT 100
[2023-10-11 08:36] LABS: ANISOCYTOSIS 1+; BASOPHILS % (MANUAL) 0 % (0.0-2.0); EOSINOPHILS % (MANUAL) 0 % (0-4); LYMPHOCYTES % (MANUAL) 20 % (16-48); MONOCYTES % (MANUAL) 11 % (0-11.0); NEUTROPHILS % (MANUAL) 69 (42-76); OVALOCYTES 1+; PLATELET ESTIMATE ADEQUATE
[2023-10-11] MEDS: MAGNESIUM OXIDE 400 MG TABLET PO ONE (09:14)
[2023-10-11] MEDS: GUAIFENESIN/D-METHORPHAN HB 5 ML UDC PO PRN (10:52)
[2023-10-11] MEDS ORDERED: MENTHOL/CETYLPYRD (CEPACOL) 1 LOZ LOZENGE PO PRN (12:00)
[2023-10-11] MEDS ORDERED: HYDROCORTISONE SOD SUCCINATE 100 MG/2 ML VIAL IV SCH (14:30)
[2023-10-11] MEDS ORDERED: METH4TAB3 PO (15:09)
[2023-10-11] MEDS ORDERED: FERR325T23 PO (15:09)
[2023-10-11] MEDS ORDERED: GUAI5SYR PO (15:09)
[2023-10-11] MEDS: NEUTRA PHOS 1 POWD.PACKET PO ONE (16:38)
[2023-10-11] MEDS: HYDROCORTISONE SOD SUCCINATE 100 MG/2 ML VIAL IV SCH (16:42)
== END 2023-10-11 18:13 | DRG 871 ==
LOC: ER 21:06 → TELE1 10-05 01:24 → ICU 10-05 01:53 → TELE1 10-07 11:07 → MEDSG1 10-10 14:44
PROVIDERS: ADMIT Nurse Practitioner Acute Care; ATTEND Student in an Organized Health Care Education/Training Program
DX: A41.9 Sepsis, unspecified organism (principal); E43 Unspecified severe protein-calorie malnutrition; G93.41 Metabolic encephalopathy; R65.21 Severe sepsis with septic shock; N17.0 Acute kidney failure with tubular necrosis; R57.1 Hypovolemic shock; J96.90 Respiratory failure, unspecified, unspecified whether with hypoxia or hypercapnia; I50.32 Chronic diastolic (congestive) heart failure; E87.20 Acidosis, unspecified; E27.40 Unspecified adrenocortical insufficiency; I11.0 Hypertensive heart disease with heart failure; D64.9 Anemia, unspecified; E11.9 Type 2 diabetes mellitus without complications; E86.9 Volume depletion, unspecified; F41.9 Anxiety disorder, unspecified; R62.7 Adult failure to thrive; Z79.84 Long term (current) use of oral hypoglycemic drugs; Z79.01 Long term (current) use of anticoagulants; Z87.891 Personal history of nicotine dependence; Z78.1 Physical restraint status; Z88.0 Allergy status to penicillin; R53.1 Weakness; F32.A Depression, unspecified; E88.09 Other disorders of plasma-protein metabolism, not elsewhere classified; Z68.23 Body mass index [BMI] 23.0-23.9, adult; F09 Unspecified mental disorder due to known physiological condition; L89.611 Pressure ulcer of right heel, stage 1; L89.626 Pressure-induced deep tissue damage of left heel; E61.1 Iron deficiency; J45.909 Unspecified asthma, uncomplicated; M89.8X9 Other specified disorders of bone, unspecified site
CPT/HCPCS: 36410; 36415; 70450-TC; 71045-TC; 76770-TC; 80048-TC; 80053-TC; 80061-TC; 80202-TC; 81001; 82533; 82550-TC; 82570-TC; 82728-TC; 82962-TC; 83540-TC; 83605-TC; 83735-TC; 83880; 83970; 84100-TC; 84155; 84165; 84300-TC; 84439-TC; 84443-TC; 84484-TC; 85025-TC; 87040-TC; 87081-TC; 87086-TC; 93307-TC; 97110-TC; 97112-TC; 97116-TC; 97530-TC; A4223; G0378; J0692; J1720; J1815; J2916; J3370; J3475; J7030; J7050; J7060

== ENCOUNTER 2024-04-28 14:01 | Inpatient (IN) | payer MEDICARE, OTHER ==
[2024-04-28] VITALS (10 sets, daily range): BP systolic 115–142; BP diastolic 74–81; TEMP 97.7–98.4; O2SAT 89–99
[~2024-04-28] VITALS: Ht 152.4 cm; Wt 70.4 kg
[~2024-04-28 14:01] MED LIST changes: +FERR325T23 PO; +GUAI5SYR PO; +METH4TAB3 PO
[2024-04-28] MEDS ORDERED: IPRATROPIUM NEB FS 0.5 MG/2.5 ML AMPUL.NEB ONE (14:35)
[2024-04-28] MEDS ORDERED: ALBUTEROL FS 2.5 MG/3 ML VIAL.NEB ONE (14:35)
[2024-04-28 14:37] LABS: BASOPHILS % (AUTO) 0.3 % (0.0-2.0); EOSINOPHILS # (AUTO) 0.3 K/uL (0.0-0.7); EOSINOPHILS % (AUTO) 3.8 % (0.0-6.0); HEMATOCRIT 34 % (33-45); HEMOGLOBIN 11.2 g/dL (11.5-14.8); LYMPHOCYTES # (AUTO) 2.6 K/uL (0.8-4.8); LYMPHOCYTES % (AUTO) 36.9 % (20.0-44.0); MEAN CORPUSCULAR HEMOGLOBIN 30 PG (26.0-33.0); MEAN CORPUSCULAR HGB CONC 33 g/dl (31.0-36.0); MEAN CORPUSCULAR VOLUME 90 fL (82-100); MONOCYTES # (AUTO) 0.4 K/uL (0.1-1.30); MONOCYTES % (AUTO) 6.2 % (2.0-12.0); NEUTROPHILS # (AUTO) 3.7 K/uL (1.8-8.9); NEUTROPHILS % (AUTO) 52.8 % (43.0-81.0); PLATELET COUNT (AUTO) 206 K/uL (150-450); RED BLOOD CELL COUNT(AUTO) 3.79 MIL/uL (4.0-5.2); RED CELL DISTRIBUTION WIDTH 14.6 % (11.5-15.0)
[2024-04-28 14:47] LABS: CALCIUM, SERUM 8.6 mg/dL (8.5-10.1); CARBON DIOXIDE 33 mmol/L (21-32); CHLORIDE 102 mmol/L (98-107); CREATININE 0.7 mg/dL (0.6-1.3); GLUCOSE 205 mg/dL (74-106); POTASSIUM 3.4 mmol/L (3.5-5.1); SODIUM SERUM 138 mmol/L (136-145); UREA NITROGEN, BLOOD 11 mg/dL (7-18)
[2024-04-28] MEDS: ALBUTEROL FS 2.5 MG/3 ML VIAL.NEB CONTNEB ONE (14:52)
[2024-04-28] MEDS: IPRATROPIUM NEB FS 0.5 MG/2.5 ML AMPUL.NEB NEB ONE (14:52)
[2024-04-28 15:03] LABS: ALBUMIN 2.7 g/dL (3.4-5.0); ALKALINE PHOSPHATASE 79 U/L (46-116); ASPARTATE AMINOTRANSFERASE 8 U/L (15-37); BILIRUBIN,TOTAL 0.2 mg/dL (0.2-1.0); NT-PRO BNP 65 pg/mL (0-125); TOTAL PROTEIN, SERUM 6.4 g/dL (6.4-8.2)
[2024-04-28] MEDS ORDERED: methylPREDNISolone SOD SUCC 125 MG/2ML VIAL ONE (15:15)
[2024-04-28] MEDS: methylPREDNISolone SOD SUCC 125 MG/2ML VIAL IV ONE (15:19)
[2024-04-28 15:26] LABS: ALANINE AMINOTRANSFERASE 10 U/L (12-78)
[2024-04-28 15:27] LABS: BILIRUBIN,DIRECT 0.1 mg/dL (0.0-0.2)
[2024-04-28] MEDS ORDERED: ALBU2.5V38 IH (16:14)
[2024-04-28] MEDS ORDERED: GABA300C PO (16:14)
[2024-04-28] MEDS ORDERED: Z GUARD REMEDY 4 OZ OINT TP PRN (18:30)
[2024-04-28] MEDS ORDERED: ZOLPIDEM TARTRATE 5 MG TABLET PO PRN (18:30)
[2024-04-28] MEDS ORDERED: ONDANSETRON HCL/PF 4 MG/2 ML VIAL IVP PRN (18:30)
[2024-04-28] MEDS ORDERED: MAG HYDROX/AL HYDROX/SIMETH 30 ML UDC PO PRN (18:30)
[2024-04-28] MEDS ORDERED: MAGNESIUM HYDROXIDE 30 ML UDC PO PRN (18:30)
[2024-04-28] MEDS ORDERED: ACETAMINOPHEN 325 MG TABLET PO PRN (18:30)
[2024-04-28] MEDS: POTASSIUM CHLORIDE 20 MEQ TAB.PRT.SR PO ONE (19:15)
[2024-04-28] MEDS: ENOXAPARIN SODIUM 40 MG/0.4 ML DISP.SYRIN SQ SCH (19:21)
[2024-04-28] MEDS: ALBUTEROL FS 2.5 MG/0.5 ML VIAL.NEB NEB SCH (19:57)
[2024-04-28] MEDS: IPRATROPIUM NEB FS 0.5 MG/2.5 ML AMPUL.NEB NEB SCH (19:57)
[2024-04-28] MEDS: LEVOFLOXACIN 750 MG /D5W 150ML 750 MG in PREMIX 1 EA IV SCH (21:51)
[2024-04-28] MEDS: methylPREDNISolone SOD SUCC 125 MG/2ML VIAL IV SCH (21:51)
[2024-04-29] VITALS (18 sets, daily range): BP systolic 105–128; BP diastolic 71–74; TEMP 97.5–98.2; O2SAT 92–99
[2024-04-29 07:26] LABS: BASOPHILS % (AUTO) 0.1 % (0.0-2.0); HEMATOCRIT 36 % (33-45); HEMOGLOBIN 11.3 g/dL (11.5-14.8); LYMPHOCYTES # (AUTO) 0.9 K/uL (0.8-4.8); LYMPHOCYTES % (AUTO) 13.9 % (20.0-44.0); MEAN CORPUSCULAR HEMOGLOBIN 29 PG (26.0-33.0); MEAN CORPUSCULAR HGB CONC 32 g/dl (31.0-36.0); MEAN CORPUSCULAR VOLUME 91 fL (82-100); MONOCYTES # (AUTO) 0.1 K/uL (0.1-1.30); MONOCYTES % (AUTO) 1.1 % (2.0-12.0); NEUTROPHILS # (AUTO) 5.3 K/uL (1.8-8.9); NEUTROPHILS % (AUTO) 84.9 % (43.0-81.0); PLATELET COUNT (AUTO) 214 K/uL (150-450); RED BLOOD CELL COUNT(AUTO) 3.89 MIL/uL (4.0-5.2); RED CELL DISTRIBUTION WIDTH 14.4 % (11.5-15.0); WHITE BLOOD COUNT (AUTO) 6.2 K/uL (4.3-11.0)
[2024-04-29 07:54] LABS: CALCIUM, SERUM 9.2 mg/dL (8.5-10.1); CARBON DIOXIDE 25 mmol/L (21-32); CHLORIDE 101 mmol/L (98-107); CREATININE 0.8 mg/dL (0.6-1.3); GLUCOSE 304 mg/dL (74-106); PHOSPHORUS 2.8 mg/dL (2.5-4.9); POTASSIUM 4.6 mmol/L (3.5-5.1); SODIUM SERUM 137 mmol/L (136-145); UREA NITROGEN, BLOOD 18 mg/dL (7-18)
[2024-04-29] MEDS: risperiDONE 0.25 MG TABLET PO SCH (09:05)
[2024-04-29] MEDS: PANTOPRAZOLE 40 MG TABLET.DR PO SCH (09:05)
[2024-04-29] MEDS: GABAPENTIN 300 MG CAPSULE PO SCH (09:05)
[2024-04-29] MEDS: APIXABAN 5 MG TABLET PO SCH (09:06)
[2024-04-29] MEDS: GUAIFENESIN/CODEINE 10 ML UDC PO PRN (13:34)
[2024-04-30] VITALS (15 sets, daily range): BP systolic 106–112; BP diastolic 56–69; TEMP 97.7–98.6; O2SAT 92–97
[2024-04-30 07:38] LABS: BASOPHILS % (AUTO) 0.1 % (0.0-2.0); HEMATOCRIT 32 % (33-45); HEMOGLOBIN 10.4 g/dL (11.5-14.8); LYMPHOCYTES # (AUTO) 0.8 K/uL (0.8-4.8); LYMPHOCYTES % (AUTO) 9.5 % (20.0-44.0); MEAN CORPUSCULAR HEMOGLOBIN 29 PG (26.0-33.0); MEAN CORPUSCULAR HGB CONC 32 g/dl (31.0-36.0); MEAN CORPUSCULAR VOLUME 91 fL (82-100); MONOCYTES # (AUTO) 0.3 K/uL (0.1-1.30); MONOCYTES % (AUTO) 3.3 % (2.0-12.0); NEUTROPHILS # (AUTO) 7.6 K/uL (1.8-8.9); NEUTROPHILS % (AUTO) 87.1 % (43.0-81.0); PLATELET COUNT (AUTO) 225 K/uL (150-450); RED BLOOD CELL COUNT(AUTO) 3.55 MIL/uL (4.0-5.2); RED CELL DISTRIBUTION WIDTH 14.8 % (11.5-15.0); WHITE BLOOD COUNT (AUTO) 8.7 K/uL (4.3-11.0)
[2024-04-30 07:47] LABS: CALCIUM, SERUM 8.9 mg/dL (8.5-10.1); CARBON DIOXIDE 29 mmol/L (21-32); CHLORIDE 100 mmol/L (98-107); CREATININE 0.8 mg/dL (0.6-1.3); GLUCOSE 315 mg/dL (74-106); PHOSPHORUS 3.4 mg/dL (2.5-4.9); POTASSIUM 4.4 mmol/L (3.5-5.1); SODIUM SERUM 136 mmol/L (136-145); UREA NITROGEN, BLOOD 26 mg/dL (7-18)
[2024-04-30] MEDS: methylPREDNISolone SOD SUCC 40 MG/ML VIAL IV SCH (12:52)
[2024-05-01] VITALS (14 sets, daily range): BP systolic 95–112; BP diastolic 62–71; TEMP 97.7–98.6; O2SAT 93–99
[2024-05-01 06:44] LABS: HEMATOCRIT 32 % (33-45); HEMOGLOBIN 10.3 g/dL (11.5-14.8); LYMPHOCYTES # (AUTO) 0.9 K/uL (0.8-4.8); LYMPHOCYTES % (AUTO) 10.7 % (20.0-44.0); MEAN CORPUSCULAR HEMOGLOBIN 29 PG (26.0-33.0); MEAN CORPUSCULAR HGB CONC 32 g/dl (31.0-36.0); MEAN CORPUSCULAR VOLUME 91 fL (82-100); MONOCYTES # (AUTO) 0.3 K/uL (0.1-1.30); MONOCYTES % (AUTO) 4.1 % (2.0-12.0); NEUTROPHILS # (AUTO) 6.8 K/uL (1.8-8.9); NEUTROPHILS % (AUTO) 85.2 % (43.0-81.0); PLATELET COUNT (AUTO) 213 K/uL (150-450); RED BLOOD CELL COUNT(AUTO) 3.52 MIL/uL (4.0-5.2); RED CELL DISTRIBUTION WIDTH 14.7 % (11.5-15.0)
[2024-05-01 06:47] LABS: CALCIUM, SERUM 8.7 mg/dL (8.5-10.1); CARBON DIOXIDE 30 mmol/L (21-32); CHLORIDE 102 mmol/L (98-107); CREATININE 0.7 mg/dL (0.6-1.3); GLUCOSE 267 mg/dL (74-106); MAGNESIUM 1.9 mg/dL (1.8-2.4); PHOSPHORUS 2.9 mg/dL (2.5-4.9); POTASSIUM 4.6 mmol/L (3.5-5.1); SODIUM SERUM 136 mmol/L (136-145); UREA NITROGEN, BLOOD 28 mg/dL (7-18)
[2024-05-02] VITALS (13 sets, daily range): BP systolic 94–119; BP diastolic 64–80; TEMP 97.3–99.1; O2SAT 92–99
[2024-05-02 06:40] LABS: BASOPHILS % (AUTO) 0.1 % (0.0-2.0); HEMATOCRIT 33 % (33-45); HEMOGLOBIN 10.6 g/dL (11.5-14.8); LYMPHOCYTES % (AUTO) 14.6 % (20.0-44.0); MEAN CORPUSCULAR HEMOGLOBIN 29 PG (26.0-33.0); MEAN CORPUSCULAR HGB CONC 32 g/dl (31.0-36.0); MEAN CORPUSCULAR VOLUME 92 fL (82-100); MONOCYTES # (AUTO) 0.2 K/uL (0.1-1.30); MONOCYTES % (AUTO) 2.5 % (2.0-12.0); NEUTROPHILS # (AUTO) 5.7 K/uL (1.8-8.9); NEUTROPHILS % (AUTO) 82.8 % (43.0-81.0); PLATELET COUNT (AUTO) 217 K/uL (150-450); RED CELL DISTRIBUTION WIDTH 14.8 % (11.5-15.0); WHITE BLOOD COUNT (AUTO) 6.9 K/uL (4.3-11.0)
[2024-05-02 07:19] LABS: CARBON DIOXIDE 24 mmol/L (21-32); CHLORIDE 99 mmol/L (98-107); CREATININE 0.8 mg/dL (0.6-1.3); MAGNESIUM 2.1 mg/dL (1.8-2.4); POTASSIUM 4.7 mmol/L (3.5-5.1); SODIUM SERUM 134 mmol/L (136-145); UREA NITROGEN, BLOOD 29 mg/dL (7-18)
[2024-05-02 07:54] LABS: GLUCOSE 420 mg/dL (74-106)
[2024-05-02] MEDS ORDERED: DEXTROSE 50%-WATER 50 ML DISP.SYRIN IV PRN (12:30)
[2024-05-02] MEDS: BLOOD SUGAR DIAGNOSTIC 1 EACH STRIP IN SCH (12:41)
[2024-05-02] MEDS: FUROSEMIDE 20 MG/2 ML VIAL IV SCH (12:41)
[2024-05-02] MEDS: INSULIN REGULAR, HUMAN 100 UNIT/ML 3 ML VIAL SQ PRN (12:43)
[2024-05-03] VITALS (10 sets, daily range): BP systolic 107–108; BP diastolic 68–73; TEMP 97.7–98.6; O2SAT 93–98
[2024-05-03 06:56] LABS: BASOPHILS % (AUTO) 0.1 % (0.0-2.0); EOSINOPHILS % (AUTO) 0.2 % (0.0-6.0); HEMATOCRIT 33 % (33-45); LYMPHOCYTES # (AUTO) 2.5 K/uL (0.8-4.8); MEAN CORPUSCULAR HEMOGLOBIN 30 PG (26.0-33.0); MEAN CORPUSCULAR HGB CONC 33 g/dl (31.0-36.0); MEAN CORPUSCULAR VOLUME 89 fL (82-100); MONOCYTES # (AUTO) 0.8 K/uL (0.1-1.30); MONOCYTES % (AUTO) 9.8 % (2.0-12.0); NEUTROPHILS # (AUTO) 4.6 K/uL (1.8-8.9); NEUTROPHILS % (AUTO) 57.9 % (43.0-81.0); PLATELET COUNT (AUTO) 226 K/uL (150-450); RED BLOOD CELL COUNT(AUTO) 3.73 MIL/uL (4.0-5.2); RED CELL DISTRIBUTION WIDTH 14.8 % (11.5-15.0); WHITE BLOOD COUNT (AUTO) 7.9 K/uL (4.3-11.0)
[2024-05-03 07:39] LABS: CALCIUM, SERUM 8.6 mg/dL (8.5-10.1); CARBON DIOXIDE 36 mmol/L (21-32); CHLORIDE 99 mmol/L (98-107); CREATININE 0.6 mg/dL (0.6-1.3); GLUCOSE 93 mg/dL (74-106); MAGNESIUM 1.7 mg/dL (1.8-2.4); POTASSIUM 3.6 mmol/L (3.5-5.1); SODIUM SERUM 138 mmol/L (136-145); UREA NITROGEN, BLOOD 26 mg/dL (7-18)
[2024-05-03] MEDS: methylPREDNISolone SOD SUCC 40 MG/ML VIAL IV SCH (08:35)
[2024-05-03] MEDS: MAGNESIUM OXIDE 400 MG TABLET PO ONE (12:01)
[2024-05-03] MEDS ORDERED: FURO-145 PO (16:00)
[2024-05-03] MEDS ORDERED: METH4TAB17 PO (16:00)
== END 2024-05-03 20:35 | disposition home health service (06) | DRG 202 ==
LOC: ER 14:07 → TELE 16:32 → MED 04-29 11:45
PROVIDERS: ADMIT Student in an Organized Health Care Education/Training Program; ATTEND Nurse Practitioner Acute Care
DX: J45.901 Unspecified asthma with (acute) exacerbation (principal); I50.31 Acute diastolic (congestive) heart failure; J96.01 Acute respiratory failure with hypoxia; E44.0 Moderate protein-calorie malnutrition; I11.0 Hypertensive heart disease with heart failure; D64.9 Anemia, unspecified; E87.6 Hypokalemia; E88.09 Other disorders of plasma-protein metabolism, not elsewhere classified; F32.A Depression, unspecified; F41.9 Anxiety disorder, unspecified; Z79.01 Long term (current) use of anticoagulants; Z87.891 Personal history of nicotine dependence; Z88.0 Allergy status to penicillin; Z20.822 Contact with and (suspected) exposure to COVID-19; Z68.30 Body mass index [BMI] 30.0-30.9, adult; E11.9 Type 2 diabetes mellitus without complications
CPT/HCPCS: 36415; 71045-TC; 80048-TC; 80076-TC; 82962-TC; 83735-TC; 83880; 84100-TC; 84484-TC; 85025-TC; 94761-TC; 94799-TC; 97110-TC; 97530-TC; A4216; A4223; G0378; J1650; J1815; J1940; J1956; J2919; J7050

== ENCOUNTER 2024-09-07 16:19 | Inpatient (IN) | payer MEDICARE, OTHER ==
[~2024-09-07] VITALS: Ht 154.9 cm; Wt 78.7 kg
[~2024-09-07 16:19] MED LIST changes: -ALBU18HF2 IH; +ALBU2.5V38 IH; -BACL10TA PO; -BENA20TA9 PO; -ERGO500040 PO; -FERR325T23 PO; +FURO-145 PO; +GABA300C PO; -GUAI5SYR PO; -METF-440 PO; +METH4TAB17 PO; -METH4TAB3 PO; -POTA10CA43 PO
[2024-09-07 17:19] LABS: BASOPHILS % (AUTO) 0.4 % (0.0-2.0); EOSINOPHILS # (AUTO) 0.2 K/uL (0.0-0.7); EOSINOPHILS % (AUTO) 2.1 % (0.0-6.0); HEMATOCRIT 39 % (33-45); HEMOGLOBIN 12.5 g/dL (11.5-14.8); LYMPHOCYTES # (AUTO) 3.3 K/uL (0.8-4.8); LYMPHOCYTES % (AUTO) 40.7 % (20.0-44.0); MEAN CORPUSCULAR HEMOGLOBIN 29 PG (26.0-33.0); MEAN CORPUSCULAR HGB CONC 32 g/dl (31.0-36.0); MEAN CORPUSCULAR VOLUME 89 fL (82-100); MONOCYTES # (AUTO) 0.5 K/uL (0.1-1.30); MONOCYTES % (AUTO) 6.6 % (2.0-12.0); NEUTROPHILS # (AUTO) 4.1 K/uL (1.8-8.9); NEUTROPHILS % (AUTO) 50.2 % (43.0-81.0); PLATELET COUNT (AUTO) 148 K/uL (150-450); RED BLOOD CELL COUNT(AUTO) 4.34 MIL/uL (4.0-5.2); RED CELL DISTRIBUTION WIDTH 14.4 % (11.5-15.0); WHITE BLOOD COUNT (AUTO) 8.1 K/uL (4.3-11.0)
[2024-09-07] MEDS ORDERED: ALBU6.7H9 IH (17:50)
[2024-09-07 18:42] LABS: CALCIUM, SERUM 8.9 mg/dL (8.5-10.1); CARBON DIOXIDE 34 mmol/L (21-32); CHLORIDE 100 mmol/L (98-107); CREATININE 0.7 mg/dL (0.6-1.3); GLUCOSE 199 mg/dL (74-106); POTASSIUM 4.1 mmol/L (3.5-5.1); SODIUM SERUM 141 mmol/L (136-145); UREA NITROGEN, BLOOD 14 mg/dL (7-18)
[2024-09-07 18:54] LABS: ALANINE AMINOTRANSFERASE < 6 U/L (12-78); ALBUMIN 2.9 g/dL (3.4-5.0); ALKALINE PHOSPHATASE 85 U/L (46-116); ASPARTATE AMINOTRANSFERASE 12 U/L (15-37); BILIRUBIN,DIRECT 0.1 mg/dL (0.0-0.2); BILIRUBIN,TOTAL 0.2 mg/dL (0.2-1.0); NT-PRO BNP 129 pg/mL (0-125)
[2024-09-07] MEDS ORDERED: MAG HYDROX/AL HYDROX/SIMETH 30 ML UDC PO PRN (21:00)
[2024-09-07] MEDS ORDERED: ALBUTEROL FS 2.5 MG/3 ML VIAL.NEB NEB PRN (21:00)
[2024-09-07] MEDS ORDERED: MAGNESIUM HYDROXIDE 30 ML UDC PO PRN (21:00)
[2024-09-07] MEDS ORDERED: ZOLPIDEM TARTRATE 5 MG TABLET PO PRN (21:00)
[2024-09-07] MEDS ORDERED: ENOXAPARIN SODIUM 40 MG/0.4 ML DISP.SYRIN SQ SCH (21:00)
[2024-09-07 22:13] LABS: APPEARANCE,URINE CLEAR (CLEAR); BILIRUBIN,URINE NEGATIVE (NEGATIVE); BLOOD, URINE NEGATIVE Ery/uL (NEGATIVE); COLOR,URINE YELLOW (YELLOW); KETONES,URINE NEGATIVE (NEGATIVE); LEUKOCYTE ESTERASE ,URINE NEGATIVE (NEGATIVE); NITRITE, URINE NEGATIVE (NEGATIVE); PH,URINE 6.5 (5.0-8.0); PROTEIN,URINE NEGATIVE (NEGATIVE); UGLUCOSE NEGATIVE (NEGATIVE); UROBILINOGEN,URINE 0.2 EU/dL (0.2)
[2024-09-07] MEDS: FUROSEMIDE 20 MG/2 ML VIAL IV SCH (23:07)
[2024-09-08] VITALS (9 sets, daily range): BP systolic 112–142; BP diastolic 80–94; TEMP 97.6–98.5; O2SAT 90–100
[2024-09-08 06:37] LABS: BASOPHILS % (AUTO) 0.2 % (0.0-2.0); EOSINOPHILS # (AUTO) 0.1 K/uL (0.0-0.7); EOSINOPHILS % (AUTO) 1.1 % (0.0-6.0); HEMATOCRIT 41 % (33-45); HEMOGLOBIN 13.1 g/dL (11.5-14.8); LYMPHOCYTES # (AUTO) 2.3 K/uL (0.8-4.8); LYMPHOCYTES % (AUTO) 28.5 % (20.0-44.0); MEAN CORPUSCULAR HEMOGLOBIN 29 PG (26.0-33.0); MEAN CORPUSCULAR HGB CONC 32 g/dl (31.0-36.0); MEAN CORPUSCULAR VOLUME 89 fL (82-100); MONOCYTES # (AUTO) 0.5 K/uL (0.1-1.30); MONOCYTES % (AUTO) 6.5 % (2.0-12.0); NEUTROPHILS % (AUTO) 63.7 % (43.0-81.0); PLATELET COUNT (AUTO) 146 K/uL (150-450); WHITE BLOOD COUNT (AUTO) 7.9 K/uL (4.3-11.0)
[2024-09-08 07:15] LABS: ALBUMIN 2.7 g/dL (3.4-5.0); CALCIUM, SERUM 8.8 mg/dL (8.5-10.1); CARBON DIOXIDE 35 mmol/L (21-32); CHLORIDE 99 mmol/L (98-107); CREATININE 0.5 mg/dL (0.6-1.3); GLUCOSE 171 mg/dL (74-106); MAGNESIUM 1.9 mg/dL (1.8-2.4); PHOSPHORUS 4.4 mg/dL (2.5-4.9); POTASSIUM 5.3 mmol/L (3.5-5.1); SODIUM SERUM 138 mmol/L (136-145); UREA NITROGEN, BLOOD 14 mg/dL (7-18)
[2024-09-08 08:24] LABS: CHOLESTEROL 239 mg/dL (<200); HDL CHOLESTEROL 56 mg/dL (40-60); LDL 145 mg/dL (0-99); TRIGLYCERIDES 83 mg/dL (30-150)
[2024-09-08] MEDS: GABAPENTIN 300 MG CAPSULE PO SCH (08:47)
[2024-09-08] MEDS: PANTOPRAZOLE 40 MG TABLET.DR PO SCH (08:47)
[2024-09-08] MEDS: risperiDONE 0.25 MG TABLET PO SCH (08:47)
[2024-09-08] MEDS: APIXABAN 5 MG TABLET PO SCH (08:48)
[2024-09-08] MEDS: FUROSEMIDE 40 MG/4 ML VIAL IV SCH (10:37)
[2024-09-08] MEDS: SODIUM ZIRCONIUM CYCLOSILICATE 5 GM POWD.PACK PO ONE (12:32)
[2024-09-08] MEDS: LEVOFLOXACIN (250MG) 250 MG TABLET PO SCH (13:27)
[2024-09-08] MEDS: methylPREDNISolone SOD SUCC 125 MG/2ML VIAL IV SCH (13:27)
[2024-09-08 14:13] LABS: ABG BASE EXCESS 9.9 mmol/L (-2.0-3.0); ABG OXYGEN SATURATION 85.9 % (94.0-98.0); ABG PCO2 63.3 mmHg (32.0-45.0); ABG PH 7.389 (7.350-7.450); ABG PO2 51.5 mmHg (83.0-108.0); COHb 0.9 % (0.5-1.5); MetHb 0.4 % (0.0-1.5); O2Hb 84.8 % (94.0-97.0); SITE, ABG LEFT RADIAL
[2024-09-08] MEDS: ALBUTEROL FS 2.5 MG/3 ML VIAL.NEB NEB SCH (20:13)
[2024-09-09] VITALS (12 sets, daily range): BP systolic 113–150; BP diastolic 62–86; TEMP 96.8–98.6; O2SAT 92–97
[2024-09-09 08:03] LABS: BASOPHILS % (AUTO) 0.1 % (0.0-2.0); HEMATOCRIT 41 % (33-45); HEMOGLOBIN 13.2 g/dL (11.5-14.8); LYMPHOCYTES # (AUTO) 1.1 K/uL (0.8-4.8); LYMPHOCYTES % (AUTO) 15.1 % (20.0-44.0); MEAN CORPUSCULAR HEMOGLOBIN 29 PG (26.0-33.0); MEAN CORPUSCULAR HGB CONC 32 g/dl (31.0-36.0); MEAN CORPUSCULAR VOLUME 89 fL (82-100); MONOCYTES # (AUTO) 0.2 K/uL (0.1-1.30); MONOCYTES % (AUTO) 2.5 % (2.0-12.0); NEUTROPHILS # (AUTO) 5.9 K/uL (1.8-8.9); NEUTROPHILS % (AUTO) 82.3 % (43.0-81.0); PLATELET COUNT (AUTO) 153 K/uL (150-450); RED BLOOD CELL COUNT(AUTO) 4.59 MIL/uL (4.0-5.2); RED CELL DISTRIBUTION WIDTH 14.3 % (11.5-15.0); WHITE BLOOD COUNT (AUTO) 7.2 K/uL (4.3-11.0)
[2024-09-09 08:38] LABS: BILIRUBIN,TOTAL 0.2 mg/dL (0.2-1.0); CALCIUM, SERUM 8.8 mg/dL (8.5-10.1); CREATININE 0.9 mg/dL (0.6-1.3); MAGNESIUM 1.7 mg/dL (1.8-2.4); PHOSPHORUS 4.1 mg/dL (2.5-4.9); POTASSIUM 3.7 mmol/L (3.5-5.1); TOTAL PROTEIN, SERUM 7.2 g/dL (6.4-8.2)
[2024-09-09] MEDS: MAGNESIUM OXIDE 400 MG TABLET PO ONE (09:34)
[2024-09-10] VITALS (12 sets, daily range): BP systolic 109–131; BP diastolic 74–82; TEMP 97.5–98.4; O2SAT 90–98
[2024-09-10] MEDS: MUPIROCIN OINT 2% 22 GM TUBE NS SCH (11:09)
[2024-09-10] MEDS: Z GUARD REMEDY 4 OZ OINT TP PRN (11:10)
[2024-09-10] MEDS: MENTHOL/CETYLPYRD (CEPACOL) 1 LOZ LOZENGE PO PRN (15:16)
[2024-09-10] MEDS: ACETAMINOPHEN 325 MG TABLET PO PRN (23:51)
[2024-09-11] VITALS (12 sets, daily range): BP systolic 100–135; BP diastolic 72–89; TEMP 97.2–98.8; O2SAT 91–97
[2024-09-12] VITALS (8 sets, daily range): BP systolic 110–118; BP diastolic 71–83; TEMP 97.7–98.1; O2SAT 95–99
[2024-09-12] MEDS: methylPREDNISolone SOD SUCC 125 MG/2ML VIAL IV SCH (08:56)
[2024-09-12] MEDS ORDERED: LEVO250T59 PO (11:33)
[2024-09-12] MEDS ORDERED: PANT40TA49 PO (11:33)
[2024-09-12] MEDS ORDERED: FLUT1BLS IH (11:33)
[2024-09-12] MEDS ORDERED: METH4TAB3 PO (11:33)
== END 2024-09-12 17:35 | disposition home health service (06) | DRG 291 ==
LOC: ER 16:25 → TELE1 20:50 → MEDSG1 09-12 12:47
PROVIDERS: ADMIT Nurse Practitioner Family; ATTEND Internal Medicine
PROC: 5A09357 Assistance with Respiratory Ventilation, Less than 24 Consecutive Hours, Continuous Positive Airway Pressure (ICD-10-PCS; principal; 2024-09-08)
DX: I50.33 Acute on chronic diastolic (congestive) heart failure (principal); J96.01 Acute respiratory failure with hypoxia; J45.901 Unspecified asthma with (acute) exacerbation; J96.12 Chronic respiratory failure with hypercapnia; D63.8 Anemia in other chronic diseases classified elsewhere; E11.65 Type 2 diabetes mellitus with hyperglycemia; E66.9 Obesity, unspecified; E78.5 Hyperlipidemia, unspecified; E87.5 Hyperkalemia; Z87.891 Personal history of nicotine dependence; Z88.0 Allergy status to penicillin; Z79.01 Long term (current) use of anticoagulants; Z20.822 Contact with and (suspected) exposure to COVID-19; M19.90 Unspecified osteoarthritis, unspecified site; E88.09 Other disorders of plasma-protein metabolism, not elsewhere classified; Z68.32 Body mass index [BMI] 32.0-32.9, adult; J20.9 Acute bronchitis, unspecified; J98.4 Other disorders of lung
CPT/HCPCS: 36415; 36600; 71045-TC; 80048-TC; 80053-TC; 80061-TC; 80076-TC; 82040-TC; 82803-TC; 83735-TC; 83880; 84100-TC; 84443-TC; 84484-TC; 85025-TC; 87081-TC; 87086-TC; 92526; 92611-TC; 93307-TC; 93970-TC; 94660; 94760-TC; 94762-TC; 94799-TC; G0378; J1940; J2919

== ENCOUNTER 2024-10-31 11:44 | Inpatient (IN) | payer MEDICARE, OTHER ==
[~2024-10-31] VITALS: Ht 154.9 cm; Wt 79.4 kg
[~2024-10-31 11:44] MED LIST changes: -ALBU2.5V38 IH; +ALBU6.7H9 IH; +AZIT250T13 PO; +FLUT1BLS IH; +LEVO250T59 PO; -METH4TAB17 PO; +METH4TAB3 PO; +PANT40TA49 PO
[2024-10-31] MEDS ORDERED: IPRATROPIUM NEB FS 0.5 MG/2.5 ML AMPUL.NEB ONE (12:03)
[2024-10-31] MEDS ORDERED: ALBUTEROL FS 2.5 MG/3 ML VIAL.NEB ONE (12:03)
[2024-10-31 12:05] VITALS: O2SAT 92
[2024-10-31] MEDS: ALBUTEROL FS 2.5 MG/3 ML VIAL.NEB NEB ONE (12:05)
[2024-10-31] MEDS: IPRATROPIUM NEB FS 0.5 MG/2.5 ML AMPUL.NEB NEB ONE (12:05)
[2024-10-31] MEDS: methylPREDNISolone SOD SUCC 125 MG/2ML VIAL IV ONE (12:27)
[2024-10-31] MEDS ORDERED: FURO20TA4 PO (12:49)
[2024-10-31] MEDS ORDERED: BENA20TA9 PO (12:49)
[2024-10-31] MEDS ORDERED: TRAZ-257 PO (12:49)
[2024-10-31 12:51] LABS: BASOPHILS % (AUTO) 0.2 % (0.0-2.0); EOSINOPHILS # (AUTO) 0.3 K/uL (0.0-0.7); HEMATOCRIT 37 % (33-45); LYMPHOCYTES # (AUTO) 4.1 K/uL (0.8-4.8); LYMPHOCYTES % (AUTO) 54.8 % (20.0-44.0); MEAN CORPUSCULAR HEMOGLOBIN 29 PG (26.0-33.0); MEAN CORPUSCULAR HGB CONC 32 g/dl (31.0-36.0); MEAN CORPUSCULAR VOLUME 91 fL (82-100); MONOCYTES # (AUTO) 0.4 K/uL (0.1-1.30); MONOCYTES % (AUTO) 5.8 % (2.0-12.0); NEUTROPHILS # (AUTO) 2.7 K/uL (1.8-8.9); NEUTROPHILS % (AUTO) 35.2 % (43.0-81.0); PLATELET COUNT (AUTO) 170 K/uL (150-450); RED BLOOD CELL COUNT(AUTO) 4.12 MIL/uL (4.0-5.2); RED CELL DISTRIBUTION WIDTH 16.8 % (11.5-15.0); WHITE BLOOD COUNT (AUTO) 7.5 K/uL (4.3-11.0)
[2024-10-31 12:53] LABS: CALCIUM, SERUM 9.3 mg/dL (8.5-10.1); CARBON DIOXIDE 33 mmol/L (21-32); CHLORIDE 101 mmol/L (98-107); CREATININE 0.7 mg/dL (0.6-1.3); GLUCOSE 297 mg/dL (74-106); POTASSIUM 3.8 mmol/L (3.5-5.1); SODIUM SERUM 141 mmol/L (136-145); UREA NITROGEN, BLOOD 6 mg/dL (7-18)
[2024-10-31 13:05] VITALS: O2SAT 97
[2024-10-31 13:06] LABS: LACTIC ACID 3.4 mmol/L (0.4-2.0)
[2024-10-31] MEDS ORDERED: methylPREDNISolone SOD SUCC 125 MG/2ML VIAL ONE (13:23)
[2024-10-31] MEDS ORDERED: Magnesium 1GM/D5W 100ML PREMIX 100 ML IV ONE (13:29)
[2024-10-31] MEDS: Magnesium 1GM/D5W 100ML PREMIX 200 ML IV ONE (13:33)
[2024-10-31] MEDS ORDERED: ONDANSETRON HCL/PF 4 MG/2 ML VIAL IVP PRN (14:00)
[2024-10-31] MEDS ORDERED: Z GUARD REMEDY 4 OZ OINT TP PRN (14:00)
[2024-10-31] MEDS ORDERED: ALBUTEROL FS 2.5 MG/3 ML VIAL.NEB NEB PRN (15:00)
[2024-10-31 15:06] LABS: BILIRUBIN,DIRECT 0.1 mg/dL (0.0-0.2); BILIRUBIN,TOTAL 0.2 mg/dL (0.2-1.0)
[2024-10-31 15:12] LABS: LACTIC ACID REFLEX 3.4 mmol/L (0.4-1.9)
[2024-10-31 15:28] VITALS: BP 108/76; TEMP 98.6; O2SAT 96
[2024-10-31] MEDS: GABAPENTIN 300 MG CAPSULE PO SCH (16:38)
[2024-10-31] MEDS: APIXABAN 5 MG TABLET PO SCH (16:39)
[2024-10-31] MEDS: LEVOFLOXACIN (250MG) 250 MG TABLET PO SCH (17:50)
[2024-10-31] MEDS ORDERED: DEXTROSE 50%-WATER 50 ML DISP.SYRIN IV PRN (18:00)
[2024-10-31] MEDS ORDERED: LEVOFLOXACIN 500 MG /D5W 100ML 500 MG in PREMIX 1 EA IV SCH (18:00)
[2024-10-31 20:00] VITALS: BP 119/66; TEMP 97.3; O2SAT 96
[2024-10-31] MEDS: methylPREDNISolone SOD SUCC 40 MG/ML VIAL IV SCH (21:04)
[2024-10-31] MEDS: BLOOD SUGAR DIAGNOSTIC 1 EACH STRIP VI SCH (21:46)
[2024-10-31] MEDS: *INSULIN REGULAR(HUMULIN R)HUM 100 UNIT/ML VIAL SQ PRN (21:51)
[2024-11-01] VITALS (31 sets, daily range): BP systolic 86–151; BP diastolic 55–85; TEMP 97.7–98.8; O2SAT 90–97
[2024-11-01 06:44] LABS: BASOPHILS % (AUTO) 0.2 % (0.0-2.0); HEMATOCRIT 36 % (33-45); LYMPHOCYTES # (AUTO) 1.1 K/uL (0.8-4.8); MEAN CORPUSCULAR HEMOGLOBIN 30 PG (26.0-33.0); MEAN CORPUSCULAR HGB CONC 34 g/dl (31.0-36.0); MEAN CORPUSCULAR VOLUME 90 fL (82-100); MONOCYTES # (AUTO) 0.1 K/uL (0.1-1.30); MONOCYTES % (AUTO) 1.8 % (2.0-12.0); NEUTROPHILS # (AUTO) 5.8 K/uL (1.8-8.9); PLATELET COUNT (AUTO) 170 K/uL (150-450); RED BLOOD CELL COUNT(AUTO) 3.96 MIL/uL (4.0-5.2); RED CELL DISTRIBUTION WIDTH 16.2 % (11.5-15.0); WHITE BLOOD COUNT (AUTO) 7.1 K/uL (4.3-11.0)
[2024-11-01 07:14] LABS: ALBUMIN 2.4 g/dL (3.4-5.0); BILIRUBIN,TOTAL 0.2 mg/dL (0.2-1.0); CALCIUM, SERUM 8.5 mg/dL (8.5-10.1); CREATININE 0.8 mg/dL (0.6-1.3); MAGNESIUM 2.1 mg/dL (1.8-2.4); PHOSPHORUS 4.3 mg/dL (2.5-4.9); POTASSIUM 4.6 mmol/L (3.5-5.1); TOTAL PROTEIN, SERUM 6.3 g/dL (6.4-8.2)
[2024-11-01 08:17] LABS: ABG BASE EXCESS 5.1 mmol/L (-2.0-3.0); ABG OXYGEN SATURATION 91.6 % (94.0-98.0); ABG PCO2 59.2 mmHg (32.0-45.0); ABG PH 7.353 (7.350-7.450); ABG PO2 61.5 mmHg (83.0-108.0); ABG TOTAL HEMOGLOBIN 12.5 G/dL (12.0-16.0); COHb 0.1 % (0.5-1.5); MetHb 0.1 % (0.0-1.5); O2Hb 91.4 % (94.0-97.0); SITE, ABG LEFT RADIAL
[2024-11-01] MEDS: PANTOPRAZOLE 40 MG VIAL IV SCH (08:51)
[2024-11-01] MEDS: ACETAMINOPHEN 325 MG TABLET PO PRN (09:17)
[2024-11-01 10:14] LABS: LACTIC ACID 2.9 mmol/L (0.4-2.0)
[2024-11-01] MEDS: BENAZEPRIL HCL 20 MG TABLET PO SCH (10:21)
[2024-11-01] MEDS ORDERED: ALBUTEROL FS 2.5 MG/3 ML VIAL.NEB NEB PRN (10:30)
[2024-11-01 11:01] LABS: ABG BASE EXCESS 4.3 mmol/L (-2.0-3.0); ABG OXYGEN SATURATION 85.7 % (94.0-98.0); ABG PCO2 56.2 mmHg (32.0-45.0); ABG PH 7.361 (7.350-7.450); ABG PO2 50.2 mmHg (83.0-108.0); ABG TOTAL HEMOGLOBIN 12.8 G/dL (12.0-16.0); COHb 0.1 % (0.5-1.5); MetHb 0.2 % (0.0-1.5); O2Hb 85.4 % (94.0-97.0); SITE, ABG LEFT RADIAL
[2024-11-01] MEDS: IPRATROPIUM NEB FS 0.5 MG/2.5 ML AMPUL.NEB NEB SCH (11:38)
[2024-11-01] MEDS: INSULIN REGULAR, HUMAN 100 UNIT/ML 3 ML VIAL SQ PRN (17:09)
[2024-11-01] MEDS ORDERED: NOREPINEPHRINE 8 MG in IV D5W 242 ML IV PRN (21:30)
[2024-11-01] MEDS: NOREPINEPHRINE 8MG/250ML RTU 250 ML IV ONE (21:55)
[2024-11-01] MEDS: NOREPINEPHRINE 8 MG in IV D5W 242 ML IV PRN (22:30)
[2024-11-02] VITALS (60 sets, daily range): BP systolic 71–130; BP diastolic 40–98; TEMP 97.8–98.5; O2SAT 87–97
[2024-11-02 05:18] LABS: BASOPHILS % (AUTO) 0.2 % (0.0-2.0); HEMATOCRIT 40 % (33-45); HEMOGLOBIN 12.7 g/dL (11.5-14.8); LYMPHOCYTES # (AUTO) 1.2 K/uL (0.8-4.8); LYMPHOCYTES % (AUTO) 10.8 % (20.0-44.0); MEAN CORPUSCULAR HEMOGLOBIN 29 PG (26.0-33.0); MEAN CORPUSCULAR HGB CONC 32 g/dl (31.0-36.0); MEAN CORPUSCULAR VOLUME 89 fL (82-100); MONOCYTES # (AUTO) 0.3 K/uL (0.1-1.30); MONOCYTES % (AUTO) 3.1 % (2.0-12.0); NEUTROPHILS # (AUTO) 9.1 K/uL (1.8-8.9); NEUTROPHILS % (AUTO) 85.9 % (43.0-81.0); PLATELET COUNT (AUTO) 207 K/uL (150-450); RED BLOOD CELL COUNT(AUTO) 4.45 MIL/uL (4.0-5.2); RED CELL DISTRIBUTION WIDTH 16.5 % (11.5-15.0); WHITE BLOOD COUNT (AUTO) 10.6 K/uL (4.3-11.0)
[2024-11-02 05:32] LABS: CALCIUM, SERUM 8.9 mg/dL (8.5-10.1); POTASSIUM 4.7 mmol/L (3.5-5.1)
[2024-11-02] MEDS: PANTOPRAZOLE 40 MG TABLET.DR PO SCH (08:19)
[2024-11-03] VITALS (32 sets, daily range): BP systolic 83–113; BP diastolic 32–85; TEMP 97.8–98.2; O2SAT 91–98
[2024-11-03 09:05] LABS: ABG BASE EXCESS 6.6 mmol/L (-2.0-3.0); ABG OXYGEN SATURATION 90.6 % (94.0-98.0); ABG PCO2 52.3 mmHg (32.0-45.0); ABG PH 7.412 (7.350-7.450); ABG TOTAL HEMOGLOBIN 12.6 G/dL (12.0-16.0); COHb 0.1 % (0.5-1.5); MetHb 0.1 % (0.0-1.5); O2Hb 90.4 % (94.0-97.0); SITE, ABG LEFT RADIAL
[2024-11-03] MEDS: MAG HYDROX/AL HYDROX/SIMETH 30 ML UDC PO PRN (14:57)
[2024-11-03] MEDS: TRAZODONE 50 MG TABLET PO PRN (22:14)
[2024-11-04] VITALS (50 sets, daily range): BP systolic 75–148; BP diastolic 40–70; TEMP 97.7–98.7; O2SAT 92–98
[2024-11-04] MEDS: NOREPINEPHRINE 8 MG in IV D5W 242 ML IV PRN (01:30)
[2024-11-04] MEDS: NOREPINEPHRINE 8MG/250ML RTU 250 ML IV ONE (02:24)
[2024-11-04 16:49] LABS: APPEARANCE,URINE CLEAR (CLEAR); BILIRUBIN,URINE NEGATIVE (NEGATIVE); BLOOD, URINE NEGATIVE Ery/uL (NEGATIVE); COLOR,URINE YELLOW (YELLOW); KETONES,URINE NEGATIVE (NEGATIVE); LEUKOCYTE ESTERASE ,URINE NEGATIVE (NEGATIVE); NITRITE, URINE POSITIVE (NEGATIVE); PH,URINE 7.5 (5.0-8.0); PROTEIN,URINE TRACE mg/dl (NEGATIVE); UGLUCOSE NEGATIVE (NEGATIVE); UROBILINOGEN,URINE 0.2 EU/dL (0.2)
[2024-11-04 16:54] LABS: CREATININE, URINE 111.5 MG/DL (30.0-125.0)
[2024-11-04 17:02] LABS: ADD URINE CULTURE YES; BACTERIA,URINE Few /HPF (None Seen); RBC,URINE 0-2 /HPF (0-2)
[2024-11-04 17:48] LABS: EOSINOPHIL,URINE None Seen
[2024-11-05] VITALS (32 sets, daily range): BP systolic 84–120; BP diastolic 35–77; TEMP 98–98.9; O2SAT 92–100
[2024-11-05 12:17] LABS: ALBUMIN 2.4 g/dL (3.4-5.0); BILIRUBIN,TOTAL 0.2 mg/dL (0.2-1.0); CREATININE 0.9 mg/dL (0.6-1.3); MAGNESIUM 2.3 mg/dL (1.8-2.4); PHOSPHORUS 3.3 mg/dL (2.5-4.9); POTASSIUM 4.1 mmol/L (3.5-5.1); TOTAL PROTEIN, SERUM 5.7 g/dL (6.4-8.2)
[2024-11-05 12:19] LABS: BASOPHILS % (AUTO) 0.1 % (0.0-2.0); HEMATOCRIT 39 % (33-45); HEMOGLOBIN 12.6 g/dL (11.5-14.8); LYMPHOCYTES # (AUTO) 1.1 K/uL (0.8-4.8); LYMPHOCYTES % (AUTO) 13.9 % (20.0-44.0); MEAN CORPUSCULAR HEMOGLOBIN 29 PG (26.0-33.0); MEAN CORPUSCULAR HGB CONC 33 g/dl (31.0-36.0); MEAN CORPUSCULAR VOLUME 89 fL (82-100); MONOCYTES # (AUTO) 0.3 K/uL (0.1-1.30); MONOCYTES % (AUTO) 4.3 % (2.0-12.0); NEUTROPHILS # (AUTO) 6.6 K/uL (1.8-8.9); NEUTROPHILS % (AUTO) 81.7 % (43.0-81.0); PLATELET COUNT (AUTO) 200 K/uL (150-450); RED CELL DISTRIBUTION WIDTH 16.8 % (11.5-15.0); WHITE BLOOD COUNT (AUTO) 8.1 K/uL (4.3-11.0)
[2024-11-05] MEDS: methylPREDNISolone SOD SUCC 40 MG/ML VIAL IV SCH (16:25)
[2024-11-05] MEDS: INSULIN GLARGINE, 100 UNIT/ML CARTRIDGE SQ SCH (21:31)
[2024-11-05] MEDS ORDERED: MENTHOL/CETYLPYRD (CEPACOL) 1 LOZ LOZENGE PO PRN (23:00)
[2024-11-06] VITALS (33 sets, daily range): BP systolic 98–133; BP diastolic 57–91; TEMP 98.2–98.6; O2SAT 90–98
[2024-11-06 09:13] LABS: ABG BASE EXCESS 3.5 mmol/L (-2.0-3.0); ABG OXYGEN SATURATION 93.6 % (94.0-98.0); ABG PCO2 49.1 mmHg (32.0-45.0); ABG PH 7.394 (7.350-7.450); ABG PO2 66.8 mmHg (83.0-108.0); ABG TOTAL HEMOGLOBIN 14.1 G/dL (12.0-16.0); COHb 0.3 % (0.5-1.5); MetHb 0.2 % (0.0-1.5); O2Hb 93.1 % (94.0-97.0); SITE, ABG LEFT RADIAL
[2024-11-07] VITALS (10 sets, daily range): BP systolic 101–155; BP diastolic 60–102; TEMP 97.3–98.6; O2SAT 92–97
[2024-11-07 06:57] LABS: BASOPHILS % (AUTO) 0.1 % (0.0-2.0); HEMATOCRIT 39 % (33-45); HEMOGLOBIN 12.7 g/dL (11.5-14.8); LYMPHOCYTES # (AUTO) 2.1 K/uL (0.8-4.8); LYMPHOCYTES % (AUTO) 20.1 % (20.0-44.0); MEAN CORPUSCULAR HEMOGLOBIN 28 PG (26.0-33.0); MEAN CORPUSCULAR HGB CONC 32 g/dl (31.0-36.0); MEAN CORPUSCULAR VOLUME 88 fL (82-100); MONOCYTES # (AUTO) 0.6 K/uL (0.1-1.30); MONOCYTES % (AUTO) 5.6 % (2.0-12.0); NEUTROPHILS # (AUTO) 7.6 K/uL (1.8-8.9); NEUTROPHILS % (AUTO) 74.2 % (43.0-81.0); PLATELET COUNT (AUTO) 195 K/uL (150-450); RED BLOOD CELL COUNT(AUTO) 4.49 MIL/uL (4.0-5.2); RED CELL DISTRIBUTION WIDTH 16.9 % (11.5-15.0); WHITE BLOOD COUNT (AUTO) 10.3 K/uL (4.3-11.0)
[2024-11-07 07:30] LABS: CREATININE 0.6 mg/dL (0.6-1.3); POTASSIUM 4.6 mmol/L (3.5-5.1)
[2024-11-07] MEDS: MAGNESIUM HYDROXIDE 30 ML UDC PO PRN (11:38)
[2024-11-07] MEDS ORDERED: METH4TAB17 PO (12:41)
[2024-11-07] MEDS ORDERED: LEVO250T59 PO (12:41)
[2024-11-07] MEDS ORDERED: Insulin Glargine,Hum SQ (12:41)
[2024-11-08] VITALS (8 sets, daily range): BP systolic 95–115; BP diastolic 58–85; TEMP 97.5–98.4; O2SAT 94–98
[2024-11-08] MEDS: BISACODYL SUPP (10 MG) 10 MG/SUPP.RECT SUPP.RECT RC PRN (07:27)
[2024-11-08] MEDS: methylPREDNISolone SOD SUCC 40 MG/ML VIAL IV SCH (08:40)
== END 2024-11-08 15:45 | disposition home health service (06) | DRG 177 ==
LOC: ER 11:46 → TELE1 14:31 → ICU 11-01 06:10 → TELE 11-06 19:36
PROVIDERS: ADMIT Nurse Practitioner Acute Care; ATTEND Internal Medicine
PROC: 5A09357 Assistance with Respiratory Ventilation, Less than 24 Consecutive Hours, Continuous Positive Airway Pressure (ICD-10-PCS; principal; 2024-11-01)
PROC: 5A09357 Assistance with Respiratory Ventilation, Less than 24 Consecutive Hours, Continuous Positive Airway Pressure (ICD-10-PCS; 2024-11-04)
DX: J15.69 Pneumonia due to other Gram-negative bacteria (principal); J96.21 Acute and chronic respiratory failure with hypoxia; J96.22 Acute and chronic respiratory failure with hypercapnia; E44.1 Mild protein-calorie malnutrition; J45.901 Unspecified asthma with (acute) exacerbation; E87.20 Acidosis, unspecified; E66.2 Morbid (severe) obesity with alveolar hypoventilation; N17.9 Acute kidney failure, unspecified; I11.0 Hypertensive heart disease with heart failure; I50.9 Heart failure, unspecified; E78.5 Hyperlipidemia, unspecified; E88.09 Other disorders of plasma-protein metabolism, not elsewhere classified; Z79.4 Long term (current) use of insulin; E11.65 Type 2 diabetes mellitus with hyperglycemia; Z79.01 Long term (current) use of anticoagulants; Z79.51 Long term (current) use of inhaled steroids; Z86.73 Personal history of transient ischemic attack (TIA), and cerebral infarction without residual deficits; Z88.0 Allergy status to penicillin; Z87.891 Personal history of nicotine dependence; Z68.33 Body mass index [BMI] 33.0-33.9, adult; E83.9 Disorder of mineral metabolism, unspecified; Z99.81 Dependence on supplemental oxygen; T46.4X5A Adverse effect of angiotensin-converting-enzyme inhibitors, initial encounter; Y92.89 Other specified places as the place of occurrence of the external cause
CPT/HCPCS: 36415; 36600; 71045-TC; 71250-TC; 74018; 80048-TC; 80053-TC; 81001; 82247-TC; 82248-TC; 82570-TC; 82803-TC; 82962-TC; 83605-TC; 83735-TC; 83880; 84100-TC; 84300-TC; 84484-TC; 85025-TC; 87040-TC; 87086-TC; 94761-TC; 94799-TC; A4223; A6403; G0378; J1815; J2470; J2919; J3475; J7060

== ENCOUNTER 2025-03-08 13:37 | Inpatient (IN) | payer MEDICARE, OTHER ==
[~2025-03-08] VITALS: Ht 154.9 cm; Wt 84.5 kg
[~2025-03-08 13:37] MED LIST changes: -AZIT250T13 PO; +BENA20TA9 PO; -FURO-145 PO; +Insulin Glargine,Hum SQ; +METH4TAB17 PO; -METH4TAB3 PO; -PANT40TA49 PO; +TRAZ-257 PO
[2025-03-08] MEDS ORDERED: IPRATROPIUM NEB FS 0.5 MG/2.5 ML AMPUL.NEB ONE (13:54)
[2025-03-08] MEDS ORDERED: ALBUTEROL FS 2.5 MG/3 ML VIAL.NEB ONE (13:54)
[2025-03-08] MEDS: methylPREDNISolone SOD SUCC 125 MG/2ML VIAL IV ONE (14:00)
[2025-03-08] MEDS: Magnesium 1GM/D5W 100ML PREMIX 200 ML IV ONE (14:00)
[2025-03-08 14:05] VITALS: O2SAT 98
[2025-03-08] MEDS: IPRATROPIUM NEB FS 0.5 MG/2.5 ML AMPUL.NEB NEB ONE (14:05)
[2025-03-08] MEDS: ALBUTEROL FS 2.5 MG/3 ML VIAL.NEB CONTNEB ONE (14:05)
[2025-03-08] MEDS ORDERED: methylPREDNISolone SOD SUCC 125 MG/2ML VIAL ONE (14:08)
[2025-03-08] MEDS ORDERED: Magnesium 1GM/D5W 100ML PREMIX 100 ML IV ONE ×2 (14:08→14:10)
[2025-03-08 14:13] LABS: BASOPHILS % (AUTO) 0.2 % (0.0-2.0); EOSINOPHILS % (AUTO) 0.4 % (0.0-6.0); HEMATOCRIT 28 % (33-45); HEMOGLOBIN 8.6 g/dL (11.5-14.8); LYMPHOCYTES # (AUTO) 1.7 K/uL (0.8-4.8); LYMPHOCYTES % (AUTO) 21.7 % (20.0-44.0); MEAN CORPUSCULAR HEMOGLOBIN 26 PG (26.0-33.0); MEAN CORPUSCULAR HGB CONC 31 g/dl (31.0-36.0); MEAN CORPUSCULAR VOLUME 83 fL (82-100); MONOCYTES # (AUTO) 0.4 K/uL (0.1-1.30); MONOCYTES % (AUTO) 5.3 % (2.0-12.0); NEUTROPHILS # (AUTO) 5.7 K/uL (1.8-8.9); NEUTROPHILS % (AUTO) 72.4 % (43.0-81.0); PLATELET COUNT (AUTO) 140 K/uL (150-450); RED BLOOD CELL COUNT(AUTO) 3.36 MIL/uL (4.0-5.2); RED CELL DISTRIBUTION WIDTH 17.1 % (11.5-15.0); WHITE BLOOD COUNT (AUTO) 7.9 K/uL (4.3-11.0)
[2025-03-08 14:21] LABS: CALCIUM, SERUM 8.1 mg/dL (8.5-10.1); CARBON DIOXIDE 35 mmol/L (21-32); CHLORIDE 100 mmol/L (98-107); CREATININE 0.9 mg/dL (0.6-1.3); POTASSIUM 3.4 mmol/L (3.5-5.1); SODIUM SERUM 140 mmol/L (136-145); UREA NITROGEN, BLOOD 14 mg/dL (7-18)
[2025-03-08 14:33] LABS: ALANINE AMINOTRANSFERASE 12 U/L (12-78); ALBUMIN 2.5 g/dL (3.4-5.0); ALKALINE PHOSPHATASE 86 U/L (46-116); ASPARTATE AMINOTRANSFERASE 15 U/L (15-37); BILIRUBIN,DIRECT 0.1 mg/dL (0.0-0.2); BILIRUBIN,TOTAL 0.2 mg/dL (0.2-1.0); NT-PRO BNP 282 pg/mL (0-125)
[2025-03-08 14:34] LABS: GLUCOSE 499 mg/dL (74-106)
[2025-03-08 15:05] VITALS: O2SAT 96
[2025-03-08 16:00] VITALS: BP 112/64; TEMP 98.1; O2SAT 100
[2025-03-08] MEDS ORDERED: Z GUARD REMEDY 4 OZ OINT TP PRN (16:00)
[2025-03-08] MEDS ORDERED: MAGNESIUM HYDROXIDE 30 ML UDC PO PRN (16:00)
[2025-03-08] MEDS ORDERED: IPRATROPIUM NEB FS 0.5 MG/2.5 ML AMPUL.NEB NEB PRN (16:00)
[2025-03-08] MEDS ORDERED: ONDANSETRON HCL/PF 4 MG/2 ML VIAL IVP PRN (16:00)
[2025-03-08] MEDS ORDERED: MAG HYDROX/AL HYDROX/SIMETH 30 ML UDC PO PRN (16:00)
[2025-03-08] MEDS ORDERED: ALBUTEROL FS 2.5 MG/0.5 ML VIAL.NEB NEB PRN (16:00)
[2025-03-08] MEDS ORDERED: DEXTROSE 50%-WATER 50 ML DISP.SYRIN IV PRN (16:00)
[2025-03-08 16:39] LABS: THYROID STIMULATING HORMONE 2.51 uIU/mL (0.358-3.74)
[2025-03-08] MEDS: INSULIN REGULAR, HUMAN 100 UNIT/ML 3 ML VIAL SQ PRN (17:16)
[2025-03-08] MEDS: ENOXAPARIN SODIUM 40 MG/0.4 ML DISP.SYRIN SQ SCH (17:17)
[2025-03-08] MEDS: BLOOD SUGAR DIAGNOSTIC 1 EACH STRIP VI SCH (17:21)
[2025-03-08] MEDS: LEVOFLOXACIN (250MG) 250 MG TABLET PO ONE (17:21)
[2025-03-08] MEDS ORDERED: TRAZODONE 50 MG TABLET PO PRN (18:00)
[2025-03-08 20:00] VITALS: BP 108/56; TEMP 97.7; O2SAT 99
[2025-03-08] MEDS: methylPREDNISolone SOD SUCC 125 MG/2ML VIAL IV SCH (21:46)
[2025-03-08] MEDS: INSULIN GLARGINE, 100 UNIT/ML CARTRIDGE SQ SCH (22:13)
[2025-03-08] MEDS: *INSULIN REGULAR(HUMULIN R)HUM 100 UNIT/ML VIAL SQ PRN (22:22)
[2025-03-09] VITALS (10 sets, daily range): BP systolic 96–123; BP diastolic 58–69; TEMP 97.9–98.2; O2SAT 89–99
[2025-03-09 06:44] LABS: BASOPHILS % (AUTO) 0.1 % (0.0-2.0); HEMATOCRIT 27 % (33-45); HEMOGLOBIN 8.7 g/dL (11.5-14.8); LYMPHOCYTES % (AUTO) 16.3 % (20.0-44.0); MEAN CORPUSCULAR HEMOGLOBIN 26 PG (26.0-33.0); MEAN CORPUSCULAR HGB CONC 32 g/dl (31.0-36.0); MEAN CORPUSCULAR VOLUME 82 fL (82-100); MONOCYTES # (AUTO) 0.1 K/uL (0.1-1.30); MONOCYTES % (AUTO) 1.1 % (2.0-12.0); NEUTROPHILS # (AUTO) 5.2 K/uL (1.8-8.9); NEUTROPHILS % (AUTO) 82.5 % (43.0-81.0); PLATELET COUNT (AUTO) 145 K/uL (150-450); RED BLOOD CELL COUNT(AUTO) 3.35 MIL/uL (4.0-5.2); RED CELL DISTRIBUTION WIDTH 17.1 % (11.5-15.0); WHITE BLOOD COUNT (AUTO) 6.3 K/uL (4.3-11.0)
[2025-03-09 07:24] LABS: CALCIUM, SERUM 8.5 mg/dL (8.5-10.1); CREATININE 0.8 mg/dL (0.6-1.3); MAGNESIUM 2.3 mg/dL (1.8-2.4); PHOSPHORUS 3.2 mg/dL (2.5-4.9); POTASSIUM 4.1 mmol/L (3.5-5.1)
[2025-03-09] MEDS: PANTOPRAZOLE 40 MG TABLET.DR PO SCH (08:23)
[2025-03-09] MEDS: risperiDONE 1 MG TABLET PO SCH (08:24)
[2025-03-09] MEDS: THERAHONEY GEL 1.5 OZ TUBE TP SCH (08:25)
[2025-03-09] MEDS: BENAZEPRIL HCL 20 MG TABLET PO SCH (08:25)
[2025-03-09] MEDS: GABAPENTIN 300 MG CAPSULE PO SCH (08:25)
[2025-03-09] MEDS: APIXABAN 5 MG TABLET PO SCH (08:26)
[2025-03-09] MEDS ORDERED: AZEL6DRO5 EACHEYE (09:32)
[2025-03-09] MEDS: IPRATROPIUM NEB FS 0.5 MG/2.5 ML AMPUL.NEB NEB SCH (14:01)
[2025-03-09] MEDS: ALBUTEROL HALF STRENGTH 1.25 MG/3 ML VIAL.NEB NEB SCH (14:01)
[2025-03-09] MEDS: methylPREDNISolone SOD SUCC 125 MG/2ML VIAL IV SCH (14:11)
[2025-03-09] MEDS: LEVOFLOXACIN (250MG) 250 MG TABLET PO SCH (16:13)
[2025-03-10] VITALS (9 sets, daily range): BP systolic 90–103; BP diastolic 50–65; TEMP 97.3–98.3; O2SAT 92–99
[2025-03-10] MEDS: ACETAMINOPHEN 325 MG TABLET PO PRN (04:29)
[2025-03-10] MEDS ORDERED: METH4TAB3 PO (12:27)
[2025-03-10] MEDS: GLUCERNA SHAKE 237 ML CAN PO SCH (13:00)
[2025-03-10] MEDS: ARGININE/GLUTAMINE/CALCIUM BMB 1 EACH POWD.PACK PO SCH (13:00)
== END 2025-03-10 19:07 | disposition home health service (06) | DRG 202 ==
LOC: ER 13:43 → TELE 15:47 → MED 03-10 19:07
DX: J45.901 Unspecified asthma with (acute) exacerbation (principal); J96.21 Acute and chronic respiratory failure with hypoxia; E44.1 Mild protein-calorie malnutrition; E66.2 Morbid (severe) obesity with alveolar hypoventilation; J98.11 Atelectasis; J96.12 Chronic respiratory failure with hypercapnia; E88.09 Other disorders of plasma-protein metabolism, not elsewhere classified; I50.9 Heart failure, unspecified; I11.0 Hypertensive heart disease with heart failure; D64.9 Anemia, unspecified; E11.65 Type 2 diabetes mellitus with hyperglycemia; E78.5 Hyperlipidemia, unspecified; Z87.891 Personal history of nicotine dependence; Z79.899 Other long term (current) drug therapy; Z79.01 Long term (current) use of anticoagulants; Z86.73 Personal history of transient ischemic attack (TIA), and cerebral infarction without residual deficits; Z88.0 Allergy status to penicillin; Z99.81 Dependence on supplemental oxygen; L89.156 Pressure-induced deep tissue damage of sacral region; Z68.35 Body mass index [BMI] 35.0-35.9, adult
CPT/HCPCS: 36415; 71045-TC; 73030-TC; 80048-TC; 80061-TC; 80076-TC; 82962-TC; 83735-TC; 83880; 84100-TC; 84443-TC; 84484-TC; 85025-TC; 94760-TC; 94799-TC; 97110-TC; 97530-TC; A4223; G0378; J1650; J1815; J2919; J3475